=== PATIENT | male | born 1990 | race Caucasian/White ===

== ENCOUNTER 2017-03-06 22:37 | Inpatient (IN) | payer MEDICAID, OTHER, SELFPAY ==
[~2017-03-06] VITALS: Ht 177.8 cm; Wt 110.0 kg
[2017-03-06 23:49] LABS: MEAN CORPUSCULAR HEMOGLOBIN 29.3 pg (27.0-33.0); MEAN CORPUSCULAR HGB CONC 34.3 g/dl (32.0-36.5); MEAN CORPUSCULAR VOLUME 85.4 fl (80.0-96.0); RED CELL DISTRIBUTION WIDTH 12.7 % (11.5-14.5); WHITE BLOOD COUNT 7.7 K/mm3 (4.0-10.0)
[2017-03-07 00:08] LABS: ALBUMIN 4.3 GM/DL (3.2-5.2); ALKALINE PHOSPHATASE 67 U/L (45-117); ALT/SGPT 53 U/L (12-78); ANION GAP 6 MEQ/L (8-16); AST/SGOT 21 U/L (15-37); BILIRUBIN,DIRECT < 0.1 MG/DL (0.0-0.2); BILIRUBIN,TOTAL 0.3 MG/DL (0.2-1.0); BLOOD UREA NITROGEN 13 MG/DL (7-18); CALCIUM LEVEL 9.3 MG/DL (8.5-10.1); CARBON DIOXIDE LEVEL 28 MEQ/L (21-32); CHLORIDE LEVEL 107 MEQ/L (98-107); CREATININE FOR GFR 1.11 MG/DL (0.70-1.30); GLOMERULAR FILTRATION RATE > 60.0 (>60); GLUCOSE, FASTING 87 MG/DL (70-105); POTASSIUM SERUM 4.8 MEQ/L (3.5-5.1); SODIUM LEVEL 141 MEQ/L (136-145); TOTAL PROTEIN 7.6 GM/DL (6.4-8.2)
[2017-03-07 00:10] LABS: METHADONE URINE NEGATIVE (NEGATIVE)
[2017-03-07 01:33] VITALS: BP 140/85
[2017-03-07] MEDS ORDERED: ACETAMINOPHEN TAB 650MG DOSE (2X325MG) PO PRN (02:30)
[2017-03-07] MEDS ORDERED: MOM 30ML SUSPENSION UDC PO PRN (02:30)
[2017-03-07] MEDS ORDERED: OLANZapine ORAL DISINTEGRATING TAB 5MG PO PRN (02:30)
[2017-03-07] MEDS ORDERED: MAALOX 30 ML SUSP *UDC PO PRN (02:30)
[2017-03-07 06:23] VITALS: BP 116/55
--- NOTE | 2017-03-07 09:31 | MHHPEPDOC ---
[facility] History & Physical History and Physical DATE OF ADMISSION: Mar 07, 2017 at 00:57 LEGAL STATUS AT ADMISSION: . CHIEF COMPLAINT: SI, Depression. HISTORY OF THE PRESENT ILLNESS: Patient is a 26-year-old male, single, domiciled with mother, working in [employer]- about 5months, moved recently in this area, [facility] one admission to psychiatry about 1.5yrs ago, depression & SI, on meds for a year but stopped after that, no SA, alcohol(?), PMH- non significant, BIB ambulance called by unknown for SI. ON evaluation, he reported that he has been feeling depressed and suicidal for a long time, failing attempts to get better, multiple stressors, money problems , no relationship problems. He reported that most of his problems started about 10 years ago when his grandfather and he was close to his grandfather. 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 He reports having nightmares of friend's that are frequent for him. He also talked about some of the flashback from his friends that, but was not able to clarify much on that. He reported that he has not been using alcohol for about 3 months, but yesterday he went to a concert & drinking alcohol after concert after 3months, felt depressed, wanted to talk with family but they didnt pick up worker the phone so he went to [employer] [employer]. He reported that he got into argument with his mother over the phone. Later on about financial issues but reports that it is not an uncommon thing and they go back and forth about some financial issues. He reports that he talked about 'you can find my deadcorp in the river' to 1 phone call not sure who he called and thinks that his sister, might have called the ambulance for him. He reports that his depression and suicidal ideas have been with him for more than 7 years, but never turned towards planned or intention to kill himself. He denies any previous attempts to kill himself and reports that that statement that he made about suicide were more impulsive and under influence of alcohol. He reports that his depression consist of sad mood, less energy, less motivation , decrease in appetite and sleep problem along with guilt feeling. He reported feeling overwhelmed at times about the financial problems but denies any panic attacks or anxiety attacks. He denies any OCD symptoms. He also denies any manic symptoms ever in his life. He denies any psychotic symptoms including auditory or visual hallucinations or paranoid ideations. Denies any substance use, apart from alcohol PAST PSYCHIATRIC HISTORY: Prior Psychiatric Disorder:. Patient reported 1 previous hospitalization admission about a year and half ago for depression and suicidal ideations. Outpatient Treatment:. Noncompliant. Suicidal/Self injurious: Denies any attempts but reported suicidal ideations which are chronic. Psychotropic Medication History: Reported he was on trazodone and 1 anti- depressant medication, which she is not able to remember her name of. ALLERGIES: NKDA FAMILY PSYCHIATRIC HISTORY: Denies. 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 Denies any legal problems SUBSTANCE ABUSE HISTORY:, Alcohol use yesterday before 3 months ago. PAST MEDICAL/SURGICAL HISTORY: 1.. Denies any medical issues. Denies any surgical procedures in the past. MENTAL STATUS EXAMINATION: 26yo male sitting in the chair, looks appropriate for the stated age, fair hygiene and grooming, normal psychomotor activities, no abnormal movements, cooperative with fair eye contact, speech is normal in rate, rhythm, amount and prosody, mood is sad & nervous, affect constricted and mood congruent, thought process is logical and goal directed, denies suicidal and homicidal ideations, denies hallucinations, no delusions elicited, aaox3, fair immediate, short term and group home memory, limited insight, judgement and impulse control DIAGNOSES: 1. Major depression, recurrent, moderate to severe in severity, without psychosis. 2.. PTSD. 3.. Alcohol abuse disorder. ASSESSMENT:. Biologically, having no family history of psychiatric illness. No chronic medical illnesses can be protective for the patient but alcohol use can be precipitating and perpetuating factor for the patient. Psychologically, having poor. Defense mechanisms and coping skills can be perpetuating factors. Socially, being practically homeless and getting into arguments with all the relatives, financial problems, can be precipitating and perpetuating factor for the patient PROBLEM LIST: 1. Depression, suicidal ideation. 2., Nightmares and flashback. 3. Alcohol use. INITIAL TREATMENT PLAN: 1. Patient was admitted on a 9.39 2. Complete history was obtained. 3. With patients permission, family will be contacted and database will be expanded. 4. Patients medication regimen will be reviewed and changed accordingly. 5. Patient will be provided with protected environment. 6. Patient will be treated with individual, group, and milieu therapies. 7. Patient will receive supportive psych-education. 8. Discharge planning will commence immediately. 9. Outpatient follow-up treatment will be strongly recommended. 10. The initial treatment plan will focus initially on: * Depression. * Risk for suicide. * Substance abuse. ESTIMATED LENGTH OF STAY: 7-10 DAYS. TIME SPENT COUNSELING AND COORDINATING INITIAL CARE: 45 minutes. Laboratory Data 24H Labs Laboratory Tests 2 03/06/17 22:49: Anion Gap 6L, Glomerular Filtration Rate > 60.0, Calcium Level 9.3, Aspartate Amino Transf (AST/SGOT) 21, Alanine Aminotransferase (ALT/SGPT) 53, Alkaline Phosphatase 67, Total Bilirubin 0.3, Direct Bilirubin < 0.1, Total Protein 7.6, Albumin 4.3, Albumin/Globulin Ratio 1.30, Thyroid Stimulating Hormone (TSH) 0.938, Salicylates Level < 1.7L, Urine Amphetamines Screen NEGATIVE, Urine Benzodiazepines Screen NEGATIVE, Urine Opiates Screen NEGATIVE, Urine Methadone Screen NEGATIVE, Acetaminophen Level < 2.0L, Urine Barbiturates Screen NEGATIVE , Urine Phencyclidine Screen NEGATIVE, Urine Cocaine Metabolite Screen NEGATIVE , Urine Cannabinoids Screen NEGATIVE, Ethyl Alcohol Level 0.078H CBC/BMP Laboratory Tests 03/06/17 22:49 Red Blood Count 5.74, Mean Corpuscular Volume 85.4, Mean Corpuscular Hemoglobin 29.3, Mean Corpuscular Hemoglobin Concent 34.3, Red Cell Distribution Width 12.7 Medications No Active Prescriptions or Reported Meds Allergies Coded Allergies: No Known Allergies (Unverified , 03/06/17) BHASKAR ZAMAN MD Mar 07, 2017 09:31
[2017-03-07] MEDS: ESCITALOPRAM OXALATE 5MG TABLET (LEXAPRO) PO SCH (11:36)
[2017-03-07 18:00] VITALS: BP 140/63
[2017-03-07] MEDS: PRAZOSIN 1 MG CAP PO SCH (22:42)
[2017-03-07] MEDS: traZODone 50 MG TAB PO PRN (23:05)
[2017-03-08 06:53] VITALS: BP 133/58
[2017-03-08] MEDS: ESCITALOPRAM OXALATE 5MG TABLET (LEXAPRO) PO SCH (09:00)
--- NOTE | 2017-03-08 15:37 | MHIPNPDOC ---
[facility], [place] Progress Note Progress Note DATE OF SERVICE: 03/08/17 HISTORY: Patient was seen. He remains irritable and told typewriters functional tester that he does not want to talk and does not feel he is a match. He initially reported that he has been continued to be sad but denied any suicidal or homicidal ideations. He was found walking around in the unit, Few interactions with others. Reported being compliant with the medications and denies any side effects. Patient also seemed to be going to the group therapy and encouraged to continue with that. He refused to talk about his sleep or appetite VITAL SIGNS: See below. CURRENT MEDICATIONS: See below. MENTAL STATUS EXAMINATION: 26yo male sitting in the chair, looks appropriate for the stated age, fair hygiene and grooming, normal psychomotor activities, no abnormal movements, cooperative with fair eye contact, speech is normal in rate, rhythm, amount and prosody, mood is sad & nervous, affect constricted and mood congruent, thought process is logical and goal directed, denies suicidal and homicidal ideations, denies hallucinations, no delusions elicited, aaox3, fair immediate, short term and usp memory, limited insight, judgement and impulse control DIAGNOSES: 1. Major depression, recurrent, moderate to severe in severity, without psychosis. 2.. PTSD. 3.. Alcohol abuse disorder. ASSESSMENT: Biologically, having no family history of psychiatric illness. No chronic medical illnesses can be protective for the patient but alcohol use can be precipitating and perpetuating factor for the patient. Psychologically, having poor. Defense mechanisms and coping skills can be perpetuating factors. Socially, being practically homeless and getting into arguments with all the relatives, financial problems, can be precipitating and perpetuating factor for the patient MANAGEMENT PLAN: continue to current treatment. TIME SPENT:15 minutes. Vital Signs Vital Signs Date Time Temp Pulse Resp B/P (MAP) Pulse Ox O2 Delivery O2 Flow Rate FiO2 03/08/17 06:53 98.0 55 16 133/58 (83) Room Air 03/07/17 01:33 97 Current Medications Current Medications Acetaminophen (Tylenol Tab) 650 mg Q6HP PRN PO HEADACHE or DISCOMFORT; Start at 02:30; Stop 04/06/17 at 02:29 Al Hydrox/Mg Hydrox/Simethicone (Mylanta) 30 ml Q4HP PRN PO HEARTBURN/ INDIGESTION; Start 03/07/17 at 02:30; Stop 04/06/17 at 02:29 Escitalopram Oxalate (Lexapro) 5 mg DAILY PO Last administered on 03/08/17 09: 00; Start 03/07/17 at 09:00; Stop 04/06/17 at 08:59 Home Med (Med Rec Complete!) ASDIRECTED XX ; Start 03/07/17 at 07:30; Stop at 07:42; Status DC Magnesium Hydroxide (Milk Of Magnesia) 30 ml DAILYPRN PRN PO CONSTIPATION; Start 03/07/17 at 02:30; Stop 04/06/17 at 02:29 Olanzapine (ZyPREXA ZYDIS) 5 mg Q4HP PRN PO AGITATION; Start 03/07/17 at 02: 30; Stop 04/06/17 at 02:29 Prazosin HCl (Minipress) 1 mg QHS PO Last administered on 03/07/17 22:42; Start 03/07/17 at 21:00; Stop 04/06/17 at 20:59 Trazodone HCl (Desyrel) 50 mg QHSP PRN PO INSOMNIA Last administered on 23:05; Start 03/07/17 at 02:30; Stop 04/06/17 at 02:29 Allergies Coded Allergies: No Known Allergies (Unverified , 03/06/17) BHASKAR ZAMAN MD Mar 08, 2017 15:37
[2017-03-08 18:00] VITALS: BP 167/80
[2017-03-08] MEDS: PRAZOSIN 1 MG CAP PO SCH (22:06)
[2017-03-08] MEDS: traZODone 50 MG TAB PO PRN (23:00)
[2017-03-09 06:15] VITALS: BP 122/58
[2017-03-09] MEDS: ESCITALOPRAM OXALATE 5MG TABLET (LEXAPRO) PO SCH (09:16)
--- NOTE | 2017-03-09 16:15 | MHIPNPDOC ---
[facility] Progress Note Progress Note DATE OF SERVICE: 03/09/17 HISTORY: day 3 of admission for depression with SI and plan. VITAL SIGNS: See below. NEW TEST RESULTS:na CURRENT MEDICATIONS: See below. MENTAL STATUS EXAMINATION: 26yo male sitting in the chair, looks appropriate for the stated age, fair hygiene and grooming, normal psychomotor activities, no abnormal movements, cooperative with fair eye contact, speech is normal in rate, rhythm, amount and prosody, mood is sad & nervous, affect constricted and mood congruent, thought process is logical and goal directed, denies suicidal and homicidal ideations, denies hallucinations, no delusions elicited, aaox3, fair immediate, short term and fci memory, limited insight, judgement and impulse control DIAGNOSES: 1. Major depression, recurrent, moderate to severe in severity, without psychosis. 2.. PTSD. 3.. Alcohol abuse disorder. ASSESSMENT: pt evaluated by singer songwriter and history obtained. He was formerly a patient at [facility] for depression (not substance abuse) approximately 1.5 years ago. He has not been on antidepressant medication due to lack of healthcare insurance. He is employed, lives with his mother and has an active social life. Pt reports ability to abstain from alcohol for many months having been motivated to quit after his friend received a DUI. They supported each other with alcohol abstinence. He attended a Concert the night of his admission and admits to having about 6 beers and was later suicidal. He states he has vague SI off and on and knows he is better, less depressed, when he is taking medication. Pt is familiar with the National suicide prevention hotline and has used this in the past. He agrees to continue reaching out whenever he has suicidal thoughts rather than do anything harmful to himself or others. He is requesting discharge so he can return to work. He states he feels much better and is no longer contemplating suicide. Discussed medications, risks and benefits including sexual side effects. Mentioned that if necessary to change meds, Wellbutrin or Viibryd may be suitable alternatives. Pt tolerating lexapro without issues. MANAGEMENT PLAN: We will arrange follow up care for medication mgt after discharge. Pt is very particular about his therapist and does not desire a referral for therapy from us. He agrees to request therapy later if he feels he needs additional support. We discussed 12 step programs, reading recovery material and changing people, places and things as a means to help him stay alcohol free. Discussed the effects of alcohol on his inhibitions, his sleep and his general health. Encouraged him to stay away from it because of his underlying depression and tendency to become suicidal. Continue close observation, continue medication, prepare for discharge on . Medical Data: LABORATORY DATA: CBC was normal. Electrolytes normal. BUN and creatinine normal at 13 and 1.11. EtOH was 0.078. REVIEW OF SYSTEMS: Ten systems review was done and was unremarkable. PHYSICAL EXAMINATION: Height 70 inches, weight 110 kg, body mass index (BMI) 34.8. Blood pressure 133/58, pulse 55, respirations 16, temperature 98. Patient is alert and oriented times three. Pupils equal and reactive to light. Extraocular movements are intact. Cornea and sclerae clear. Conjunctivae is normal. No facial asymmetry. Pharynx, tongue, gums pink and moist. Tongue is midline. NECK: Supple without lymphadenopathy. No thyromegaly. No goiter. Carotids 2+ without bruit. CHEST: Clear to auscultation without wheeze or retraction. HEART: Regular. ABDOMEN: Benign. Bowel sounds positive. GENITOURINARY/RECTAL: Not done. EXTREMITIES: Show equal strength. Full range of motion. No cyanosis, clubbing , or edema. Peripheral pulses equal and palpable bilaterally. SKIN: Warm and dry. IMPRESSION/PLAN: Psychiatric plan per psychiatry. No acute medical issues. TIME SPENT: 25 minutes. Vital Signs Vital Signs Date Time Temp Pulse Resp B/P (MAP) Pulse Ox O2 Delivery O2 Flow Rate FiO2 03/09/17 06:15 98.8 62 16 122/58 (79) Room Air 03/07/17 01:33 97 Current Medications Current Medications Acetaminophen (Tylenol Tab) 650 mg Q6HP PRN PO HEADACHE or DISCOMFORT; Start at 02:30; Stop 04/06/17 at 02:29 Al Hydrox/Mg Hydrox/Simethicone (Mylanta) 30 ml Q4HP PRN PO HEARTBURN/ INDIGESTION; Start 03/07/17 at 02:30; Stop 04/06/17 at 02:29 Escitalopram Oxalate (Lexapro) 5 mg DAILY PO Last administered on 03/09/17t 09: 16; Start 03/07/17 at 09:00; Stop 04/06/17 at 08:59 Home Med (Med Rec Complete!) ASDIRECTED XX ; Start 03/07/17 at 07:30; Stop at 07:42; Status DC Magnesium Hydroxide (Milk Of Magnesia) 30 ml DAILYPRN PRN PO CONSTIPATION; Start 03/07/17 at 02:30; Stop 04/06/17 at 02:29 Olanzapine (ZyPREXA ZYDIS) 5 mg Q4HP PRN PO AGITATION; Start 03/07/17 at 02: 30; Stop 04/06/17 at 02:29 Prazosin HCl (Minipress) 1 mg QHS PO Last administered on 03/08/17 22:06; Start 03/07/17 at 21:00; Stop 04/06/17 at 20:59 Trazodone HCl (Desyrel) 50 mg QHSP PRN PO INSOMNIA Last administered on 23:00; Start 03/07/17 at 02:30; Stop 04/06/17 at 02:29 Allergies Coded Allergies: No Known Allergies (Unverified , 03/06/17) Saumya Moses Mar 09, 2017 16:15
--- NOTE | 2017-03-09 16:16 | MHIPNPDOC ---
[facility] Progress Note Vital Signs Vital Signs Date Time Temp Pulse Resp B/P (MAP) Pulse Ox O2 Delivery O2 Flow Rate FiO2 03/09/17 06:15 98.8 62 16 122/58 (79) Room Air 03/07/17 01:33 97 Current Medications Current Medications Acetaminophen (Tylenol Tab) 650 mg Q6HP PRN PO HEADACHE or DISCOMFORT; Start at 02:30; Stop 04/06/17 at 02:29 Al Hydrox/Mg Hydrox/Simethicone (Mylanta) 30 ml Q4HP PRN PO HEARTBURN/ INDIGESTION; Start 03/07/17 at 02:30; Stop 04/06/17 at 02:29 Escitalopram Oxalate (Lexapro) 5 mg DAILY PO Last administered on 03/09/17 09: 16; Start 03/07/17 at 09:00; Stop 04/06/17 at 08:59 Home Med (Med Rec Complete!) ASDIRECTED XX ; Start 03/07/17 at 07:30; Stop at 07:42; Status DC Magnesium Hydroxide (Milk Of Magnesia) 30 ml DAILYPRN PRN PO CONSTIPATION; Start 03/07/17 at 02:30; Stop 04/06/17 at 02:29 Olanzapine (ZyPREXA ZYDIS) 5 mg Q4HP PRN PO AGITATION; Start 03/07/17 at 02: 30; Stop 04/06/17 at 02:29 Prazosin HCl (Minipress) 1 mg QHS PO Last administered on 03/08/17 22:06; Start 03/07/17 at 21:00; Stop 04/06/17 at 20:59 Trazodone HCl (Desyrel) 50 mg QHSP PRN PO INSOMNIA Last administered on 23:00; Start 03/07/17 at 02:30; Stop 04/06/17 at 02:29 Allergies Coded Allergies: No Known Allergies (Unverified , 03/06/17) Saumya Moses Mar 09, 2017 16:16
[2017-03-09 18:00] VITALS: BP 128/82
[2017-03-09 22:20] VITALS: BP 159/82
[2017-03-09] MEDS: PRAZOSIN 1 MG CAP PO SCH (22:20)
[2017-03-09] MEDS: traZODone 50 MG TAB PO PRN (23:01)
[2017-03-10 06:45] VITALS: BP_SYST 128; BP_SYST 186; BP_DIAS 59; BP_DIAS 88
--- NOTE | 2017-03-10 06:53 | HPE ---
DATE OF ADMISSION: 03/07/2017 Please refer to the psychiatric history and evaluation for further details on this admission. This examination and history is intended for medical issues which may need treatment, followup, or consult on this 26-year-old male. PRIMARY CARE PROVIDER: None. ALLERGIES: No known allergies. SOCIAL HISTORY: He is single. Ethyl alcohol (EtOH): None for 3 months, then he went to a concert and drank just prior to coming in. Smokes: None. Recreational drug use: None. PAST MEDICAL HISTORY: Depression. PAST SURGICAL HISTORY: Right knee surgery 2013, tonsillectomy and adenoidectomy as a child. HOME MEDICATIONS: None. LABORATORY DATA: CBC was normal. Electrolytes normal. BUN and creatinine normal at 13 and 1.11. EtOH was 0.078. REVIEW OF SYSTEMS: Ten systems review was done and was unremarkable. PHYSICAL EXAMINATION: Height 70 inches, weight 110 kg, body mass index (BMI) 34.8. Blood pressure 133/58, pulse 55, respirations 16, temperature 98. Patient is alert and oriented times three. Pupils equal and reactive to light. Extraocular movements are intact. Cornea and sclerae clear. Conjunctivae is normal. No facial asymmetry. Pharynx, tongue, gums pink and moist. Tongue is midline. NECK: Supple without lymphadenopathy. No thyromegaly. No goiter. Carotids 2+ without bruit. CHEST: Clear to auscultation without wheeze or retraction. HEART: Regular. ABDOMEN: Benign. Bowel sounds positive. GENITOURINARY/RECTAL: Not done. EXTREMITIES: Show equal strength. Full range of motion. No cyanosis, clubbing, or edema. Peripheral pulses equal and palpable bilaterally. SKIN: Warm and dry. IMPRESSION/PLAN: Psychiatric plan per psychiatry. No acute medical issues.
[2017-03-10] MEDS: ESCITALOPRAM OXALATE 5MG TABLET (LEXAPRO) PO SCH (08:11)
[2017-03-10] MEDS ORDERED: Escitalopram Oxalate PO (09:15)
[2017-03-10] MEDS ORDERED: TRAZO50TA PO ×2 (09:15→12:13)
[2017-03-10] MEDS ORDERED: MINI1CAP PO ×2 (09:15→12:13)
--- NOTE | 2017-03-10 13:28 | MHDSPDOC ---
[facility] Discharge Summary Discharge Summary DATE OF ADMISSION: Mar 07, 2017 at 00:57 DATE OF DISCHARGE: Mar 10, 2017 at 10:30 DISCHARGE DIAGNOSES: 1. Major depression, recurrent, moderate to severe in severity, without psychosis. 2.. PTSD. 3.. Alcohol abuse disorder. REASON FOR ADMISSION: reports dysthymia over past 7 years, when intoxicated had suicide plan of drowning in the river. CONSULTANTS INVOLVED: na TREATMENT AND PROGRESS ON THE UNIT : Pt was started on Lexapro for anxiety and depression. received full education on the medication including need to dose consistently and not to stop the medication abruptly, it will require a taper. Pt reports prior tx for depression only at [facility] about 1.5 years ago. He has been doing "okay" but without health insurance he stopped taking his antidepressant. His depressive symptoms have continued but did not become problematic until he had 5 or 6 beers at a concert on Wednesday. He could not find anyone to talk to and texted his sister that he was going to jump [place] the [place]. The sister notified police who found him by the river. He admitted to the plan. He came to the unit for treatment. HOSPITAL COURSE:he was generally cooperative and pleasant. he is very picky about therapist and took a dislike to Dr. Park for no good reason. He says it is like that for him sometimes if he doesn't "click" with a person. He tolerated medication without side effects. He verbalized improvement on meds versus no meds in terms of mood. He quickly resolved his thoughts of self-harm. He denies having a problem with alcohol. He voluntarily stays away from it most of the time. DISCHARGE ASSESSMENT: Pt discharged on Lexapro at 10 mg daily. Will likely need to increase to 20 mg after 4-6 weeks if no firm mood improvement. He denies suicidal thoughts prior to leaving and for 48 hours before 03/10/17. 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 He will return to his mother's house. Overall pt feels at this point in his life he should be further ahead in life than what he is. Cautioned pt about being hard on himself. Discussed benefits of positive thinking and healthy ways to reward himself. Pt was advised to avoid all forms of alcohol. Pts nightmares stopped on prazosin. he will be prescribed this on discharge. No other symptoms of ptsd observed during admission. MENTAL STATUS EXAMINATION ON DISCHARGE: MEDICATIONS ON DISCHARGE: - Lexapro for anxiety/depression - trazodone for insomnia. - Prazosin for nightmares. PLAN/FOLLOWUP ARRANGEMENTS: [facility] for med mgt. declined referral for alcohol use disorder. Is not a daily drinking, cautioned about the impact of alcohol on his mood and thoughts and the need to avoid using this substance. The amount of time spent in the coordination of care for this patient was approximately 30 minutes. Vital Signs/I&Os Vital Signs Date Time Temp Pulse Resp B/P (MAP) Pulse Ox O2 Delivery O2 Flow Rate FiO2 03/10/17 06:45 98.1 56 18 128/59 (82) Room Air 03/07/17 01:33 97 Medications Scheduled Prazosin HCl (Minipress) 1 Mg Cap, 1 MG PO QHS for nightmares for 7 Days, #7 [Escitalopram Oxalate] 10 TAB, 10 MG PO DAILY for MOOD for 7 Days, #7 do not stop medication abruptly. may require increase after 4-6 weeks. discuss with [facility] provider. Scheduled PRN Trazodone HCl (Trazodone HCl) 50 Mg Tab, 50 MG PO QHSP PRN for INSOMNIA for 7 Days, #7 give yourself 8-9 hours of sleep when taking this medication. Allergies Coded Allergies: No Known Allergies (Unverified , 03/06/17) Saumya Moses Mar 10, 2017 13:28
== END 2017-03-10 10:30 | disposition home or self-care (01) | DRG 751 ==
LOC: M ED 22:37 → M ED INP 03-07 00:57 → M PSY 03-07 01:15
PROVIDERS: ADMIT Psychiatry & Neurology Psychiatry; ATTEND Psychiatry & Neurology Psychiatry
DX: F33.2 Major depressive disorder, recurrent severe without psychotic features (principal); F10.10 Alcohol abuse, uncomplicated; F43.10 Post-traumatic stress disorder, unspecified; Z79.899 Other long term (current) drug therapy; G47.00 Insomnia, unspecified; F17.200 Nicotine dependence, unspecified, uncomplicated

== ENCOUNTER 2017-04-22 21:14 | Emergency (ER) | payer OTHER, MEDICAID ==
[~2017-04-22] VITALS: Ht 177.8 cm; Wt 111.0 kg
[~2017-04-22 21:14] MED LIST: Escitalopram Oxalate PO; MINI1CAP PO; TRAZO50TA PO
[2017-04-22] MEDS ORDERED: ACETAMINOPHEN 325 MG TAB PO ONE (22:30)
[2017-04-22 23:34] VITALS: BP 118/52
--- NOTE | 2017-04-23 01:03 | REP ---
Clinical: Trauma. Technique: AP, lateral, bilateral oblique views of the left ankle. Findings: Mild soft tissue swelling is suggested. No obvious acute fracture or dislocation. Joint spaces and ankle mortise appear intact. Lateral view suggests accessory os trigonum and os supratalare. No subcutaneous emphysema or radiodense foreign body. Impression: Mild swelling. No acute fracture dislocation. Signed by Eugenio Austin MD 04/23/2017 12:55 A
== END 2017-04-22 23:34 | disposition home or self-care (01) ==
LOC: M ED 21:14
DX: S93.402A Sprain of unspecified ligament of left ankle, initial encounter (principal); X50.1XXA Overexertion from prolonged static or awkward postures, initial encounter; Y92.9 Unspecified place or not applicable; Y93.9 Activity, unspecified; Y99.0 Civilian activity done for income or pay; Z79.899 Other long term (current) drug therapy

== ENCOUNTER 2017-08-12 22:13 | Emergency (ER) | payer OTHER, MEDICAID ==
[2017-08-13] MEDS: KETOROLAC 60 MG/2 ML VIAL (J1885) IM ×2 (06:24)
== END 2017-08-13 06:55 | disposition home or self-care (01) ==
LOC: M ED 22:13
DX: S43.52XA Sprain of left acromioclavicular joint, initial encounter (principal); X50.0XXA Overexertion from strenuous movement or load, initial encounter; Y92.9 Unspecified place or not applicable; Y93.89 Activity, other specified; Y99.0 Civilian activity done for income or pay; F41.9 Anxiety disorder, unspecified; F32.9 Major depressive disorder, single episode, unspecified
CPT/HCPCS: J1885

== ENCOUNTER → 2017-08-23 | Outpatient (REF) | payer OTHER, MEDICAID ==
[2017-08-23 17:17] LABS: BASO % 0.4 % (0.0-1.0); EOS # 0.4 10^3/uL (0.0-0.50); EOS % 5.4 % (0.0-3.0); HEMATOCRIT 48.8 % (42.0-52.0); HEMOGLOBIN 16.8 g/dl (14.0-18.0); IMMATURE GRANULOCYTE % 0.1 % (0-3.0); LYMPH # 2.1 10^3/uL (1.5-6.5); LYMPH % 30.3 % (24.0-44.0); MEAN CORPUSCULAR HEMOGLOBIN 29.1 pg (27.0-33.0); MEAN CORPUSCULAR HGB CONC 34.4 g/dl (32.0-36.5); MEAN CORPUSCULAR VOLUME 84.4 fl (80.0-96.0); MONO # 0.6 10^3/uL (0.0-0.8); MONO % 8.4 % (0.0-5.0); NEUTROPHILS # 3.8 10^3/uL (1.8-7.7); NEUTROPHILS % 55.4 % (36.0-66.0); PLATELET COUNT, AUTOMATED 358 10^3/uL (150-450); RED BLOOD COUNT 5.78 10^6/uL (4.30-6.10); RED CELL DISTRIBUTION WIDTH 12.5 % (11.5-14.5); WHITE BLOOD COUNT 6.8 10^3/uL (4.0-10.0)
[2017-08-23 17:59] LABS: TOTAL 25(OH) VITAMIN D 13.7 NG/ML (30.0-100.0)
[2017-08-23 18:04] LABS: ALBUMIN/GLOBULIN RATIO 1.29 (1.00-1.93); ALKALINE PHOSPHATASE 62 U/L (45-117); ALT/SGPT 57 U/L (12-78); ANION GAP 8 MEQ/L (8-16); AST/SGOT 20 U/L (7-37); BILIRUBIN,TOTAL 0.6 MG/DL (0.2-1.0); BLOOD UREA NITROGEN 19 MG/DL (7-18); CALCIUM LEVEL 9.2 MG/DL (8.5-10.1); CARBON DIOXIDE LEVEL 26 MEQ/L (21-32); CHLORIDE LEVEL 106 MEQ/L (98-107); CREATININE FOR GFR 1.03 MG/DL (0.70-1.30); GLOMERULAR FILTRATION RATE > 60.0 (>60); GLUCOSE, FASTING 91 MG/DL (70-100); POTASSIUM SERUM 4.4 MEQ/L (3.5-5.1); SODIUM LEVEL 140 MEQ/L (136-145); THYROID STIMULATING HORMONE 0.821 uIU/ML (0.358-3.740); TOTAL PROTEIN 7.1 GM/DL (6.4-8.2)
[2017-08-23 21:37] LABS: CHLAMYDIA DNA AMPLIFICATION NEGATIVE (NEGATIVE); GC DNA AMPLIFICATION NEGATIVE (NEGATIVE)
[2017-08-25 11:01] LABS: HIV 1&2 SCREEN CENTAUR NEGATIVE (NEGATIVE)
== END ==
LOC: M LAB REF 16:38
DX: Z00.00 Encounter for general adult medical examination without abnormal findings (principal)

== ENCOUNTER 2017-10-17 18:32 | Emergency (ER) | payer OTHER, MEDICAID | END 2017-10-17 21:12 | disposition home or self-care (01) | LOC: M ED 18:32 | DX: S80.12XA Contusion of left lower leg, initial encounter (principal); W21.09XA Struck by other hit or thrown ball, initial encounter; Y92.9 Unspecified place or not applicable; Y93.9 Activity, unspecified; Y99.9 Unspecified external cause status | CPT/HCPCS: 73590 ==

== ENCOUNTER 2017-12-23 20:09 | Emergency (ER) | payer OTHER ==
[2017-12-23] MEDS: IBUPROFEN 800 MG TAB PO (22:03)
[2017-12-23] MEDS: NORCO 5/325MG TABLET (BULK FOR ED) PO (22:03)
[2017-12-23] MEDS: METHOCARBAMOL 500 MG TAB PO (22:03)
== END 2017-12-23 22:06 | disposition home or self-care (01) ==
LOC: M ED 20:09
DX: M54.41 Lumbago with sciatica, right side (principal)
CPT/HCPCS: 99283

== ENCOUNTER → 2017-12-23 | Outpatient (CLI) | payer OTHER | LOC: M RAD 12:22 | DX: M79.661 Pain in right lower leg (principal) | CPT/HCPCS: 72114 ==

== ENCOUNTER → 2017-12-23 | Outpatient (REF) | payer OTHER ==
[2017-12-23 17:22] LABS: ESTIMATED AVERAGE GLUCOSE 111 MG/DL (60-110); HEMOGLOBIN A1c 5.5 %
== END ==
LOC: M LAB REF 16:41
DX: Z68.41 Body mass index [BMI] 40.0-44.9, adult (principal)

== ENCOUNTER → 2018-02-02 | Outpatient (CLI) | payer OTHER ==
[2018-02-02 20:24] LABS: BASO % 0.3 % (0.0-1.0); EOS # 0.2 10^3/uL (0.0-0.50); EOS % 2.2 % (0.0-3.0); HEMATOCRIT 43.5 % (42.0-52.0); HEMOGLOBIN 15.1 g/dl (13.5-17.5); IMMATURE GRANULOCYTE % 0.3 % (0-3.0); LYMPH # 1.2 10^3/uL (1.5-6.5); LYMPH % 12.7 % (24.0-44.0); MEAN CORPUSCULAR HEMOGLOBIN 29.1 pg (27.0-33.0); MEAN CORPUSCULAR HGB CONC 34.7 g/dl (32.0-36.5); MEAN CORPUSCULAR VOLUME 83.8 fl (80.0-96.0); MONO # 0.8 10^3/uL (0.0-0.8); NEUTROPHILS % 75.5 % (36.0-66.0); RED BLOOD COUNT 5.19 10^6/uL (4.30-6.10); RED CELL DISTRIBUTION WIDTH 12.4 % (11.5-14.5); WHITE BLOOD COUNT 9.3 10^3/uL (4.0-10.0)
[2018-02-02 20:42] LABS: ALBUMIN 3.8 GM/DL (3.2-5.2); ALBUMIN/GLOBULIN RATIO 1.19 (1.00-1.93); ALKALINE PHOSPHATASE 66 U/L (45-117); ALT/SGPT 58 U/L (12-78); ANION GAP 8 MEQ/L (8-16); AST/SGOT 23 U/L (7-37); BLOOD UREA NITROGEN 17 MG/DL (7-18); CALCIUM LEVEL 8.7 MG/DL (8.5-10.1); CARBON DIOXIDE LEVEL 27 MEQ/L (21-32); CHLORIDE LEVEL 104 MEQ/L (98-107); CREATININE FOR GFR 1.21 MG/DL (0.70-1.30); FREE T4 0.99 NG/DL (0.76-1.46); GLOMERULAR FILTRATION RATE > 60.0 (>60); GLUCOSE, FASTING 97 MG/DL (70-100); SODIUM LEVEL 139 MEQ/L (136-145); THYROID STIMULATING HORMONE 0.359 uIU/ML (0.358-3.740)
[2018-02-02 21:01] LABS: POS COUNT POS FLAG
[2018-02-02 21:02] LABS: PLATELET COUNT, AUTOMATED 209 10^3/uL (150-450)
[2018-02-05 00:07] LABS: EBV VIRAL CAPSID AG IgM <36.0 U/mL (0.0-35.9)
[2018-02-05 00:07] LABS: EBV VIRAL CAPSID AG IgG >600.0 U/mL (0.0-17.9)
== END ==
LOC: M LAB 19:04
DX: M79.1 Myalgia (principal); R53.83 Other fatigue
CPT/HCPCS: 84443

== ENCOUNTER 2018-02-03 14:48 | Emergency (ER) | payer OTHER ==
[2018-02-03] MEDS: ONDANSETRON 4MG/2ML VIAL (J2405) IV (17:45)
[2018-02-03 17:46] LABS: AMORPHOUS SEDIMENT RFX SMALL (NEGATIVE); KETONE, URINE AUTO RFX NEGATIVE (NEGATIVE); LEUKOCYTE ESTERASE UR AUTO RFX NEGATIVE (NEGATIVE); MUCUS, URINE RFX SMALL (NEGATIVE); NITRITE, URINE AUTO RFX NEGATIVE (NEGATIVE); RBC, URINE AUTO RFX 4 /HPF (0-3); SPECIFIC GRAVITY UR AUTO RFX 1.024 (1.002-1.035); SQUAM EPITHELIAL CELL UR AURFX 1 /HPF (0-6); WBC, URINE AUTO RFX 1 /HPF (0-3)
[2018-02-03] MEDS: NS 1,000 ML IV (17:46)
[2018-02-03] MEDS: KETOROLAC 30 MG/ML VIAL (J1885) IV (17:46)
[2018-02-03 18:15] LABS: BASO % 0.2 % (0.0-1.0); EOS % 0.1 % (0.0-3.0); HEMATOCRIT 45.1 % (42.0-52.0); HEMOGLOBIN 15.8 g/dl (13.5-17.5); IMMATURE GRANULOCYTE % 0.4 % (0-3.0); LYMPH # 0.9 10^3/uL (1.5-6.5); MEAN CORPUSCULAR HEMOGLOBIN 29.2 pg (27.0-33.0); MEAN CORPUSCULAR VOLUME 83.2 fl (80.0-96.0); MONO # 0.7 10^3/uL (0.0-0.8); MONO % 6.2 % (0.0-5.0); NEUTROPHILS # 9.7 10^3/uL (1.8-7.7); NEUTROPHILS % 85.1 % (36.0-66.0); PLATELET COUNT, AUTOMATED 295 10^3/uL (150-450); RED BLOOD COUNT 5.42 10^6/uL (4.30-6.10); RED CELL DISTRIBUTION WIDTH 12.3 % (11.5-14.5); WHITE BLOOD COUNT 11.4 10^3/uL (4.0-10.0)
[2018-02-03 18:34] LABS: CONTROL LINE MONO INT CTR LINE PRESENT; MONO SCRN NEGATIVE (NEGATIVE)
[2018-02-03 18:50] LABS: ALBUMIN 3.8 GM/DL (3.2-5.2); ALKALINE PHOSPHATASE 74 U/L (45-117); ALT/SGPT 66 U/L (12-78); ANION GAP 9 MEQ/L (8-16); AST/SGOT 24 U/L (7-37); BILIRUBIN,DIRECT 0.2 MG/DL (0.0-0.2); BILIRUBIN,TOTAL 0.6 MG/DL (0.2-1.0); BLOOD UREA NITROGEN 16 MG/DL (7-18); CALCIUM LEVEL 9.1 MG/DL (8.5-10.1); CARBON DIOXIDE LEVEL 25 MEQ/L (21-32); CHLORIDE LEVEL 105 MEQ/L (98-107); CREATININE FOR GFR 1.08 MG/DL (0.70-1.30); GLOMERULAR FILTRATION RATE > 60.0 (>60); GLUCOSE, FASTING 104 MG/DL (70-100); LIPASE 158 U/L (73-393); POTASSIUM SERUM 4.5 MEQ/L (3.5-5.1); SODIUM LEVEL 139 MEQ/L (136-145); TOTAL PROTEIN 7.6 GM/DL (6.4-8.2)
== END 2018-02-03 19:07 | disposition home or self-care (01) ==
LOC: M ED 14:48
DX: R10.9 Unspecified abdominal pain (principal); G47.00 Insomnia, unspecified; F32.9 Major depressive disorder, single episode, unspecified; F17.228 Nicotine dependence, chewing tobacco, with other nicotine-induced disorders
CPT/HCPCS: J2405

== ENCOUNTER 2018-04-30 22:36 | Emergency (ER) | payer OTHER ==
[2018-04-30] MEDS: METOPROLOL TART 25 MG TABLET PO (23:45)
[2018-05-01 00:12] LABS: ANION GAP 6 MEQ/L (8-16); BLOOD UREA NITROGEN 17 MG/DL (7-18); C REACTIVE PROTEIN QUANTITATIV < 0.30 MG/DL (0.00-0.30); CALCIUM LEVEL 9.1 MG/DL (8.5-10.1); CARBON DIOXIDE LEVEL 27 MEQ/L (21-32); CHLORIDE LEVEL 105 MEQ/L (98-107); CREATININE FOR GFR 1.24 MG/DL (0.70-1.30); FREE THYROXINE INDEX 3.6 % (1.4-3.8); GLOMERULAR FILTRATION RATE > 60.0 (>60); GLUCOSE, FASTING 102 MG/DL (70-100); POTASSIUM SERUM 4.7 MEQ/L (3.5-5.1); SODIUM LEVEL 138 MEQ/L (136-145); T UPTAKE 36 % (33-40); THYROXINE (T4) 10.1 UG/DL (4.5-12.0)
[2018-05-04 08:07] LABS: COPPER PLASMA 93 ug/dL (72-166); Lyme Disease IgG/IgM Antibodie <0.91 ISR (0.00-0.90); Lyme Disease IgM Ab Quantitati <0.80 index (0.00-0.79)
== END 2018-05-01 04:37 | disposition home or self-care (01) ==
LOC: M ED 05-01 04:37
DX: M54.16 Radiculopathy, lumbar region (principal); J45.909 Unspecified asthma, uncomplicated; F17.200 Nicotine dependence, unspecified, uncomplicated; Z82.49 Family history of ischemic heart disease and other diseases of the circulatory system
CPT/HCPCS: 72148

== ENCOUNTER → 2018-06-04 | Outpatient (REF) | payer OTHER | LOC: M LAB REF 13:00 | DX: J02.9 Acute pharyngitis, unspecified (principal) | CPT/HCPCS: 87081 ==

== ENCOUNTER 2018-08-14 12:58 | Emergency (ER) | payer OTHER ==
[~2018-08-14] VITALS: Ht 177.8 cm; Wt 13.2 kg
[~2018-08-14 12:58] MED LIST changes: +IBUP200C25 PO; +IBUP80TA PO; +KETO10TAB PO; +NEOM1SOL13; +NORCOTAB PO; +PRED20TA; +PRED20TA PO; +ROBA500T PO; +VENTAER; +ZOFR4TAB14 PO
[2018-08-14] MEDS ORDERED: MELO7.5T7 PO (13:16)
[2018-08-14] MEDS ORDERED: TIZA4CAP PO (13:16)
[2018-08-14] MEDS ORDERED: TRAZ-189 PO (13:16)
[2018-08-14] MEDS ORDERED: GABA-843 PO (13:16)
[2018-08-14 14:52] LABS: HEMATOCRIT 46.4 % (42.0-52.0); HEMOGLOBIN 15.9 g/dl (13.5-17.5); MEAN CORPUSCULAR HEMOGLOBIN 28.6 pg (27.0-33.0); MEAN CORPUSCULAR HGB CONC 34.3 g/dl (32.0-36.5); MEAN CORPUSCULAR VOLUME 83.6 fl (80.0-96.0); PLATELET COUNT, AUTOMATED 349 10^3/uL (150-450); RED BLOOD COUNT 5.55 10^6/uL (4.30-6.10); WHITE BLOOD COUNT 6.3 10^3/uL (4.0-10.0)
[2018-08-14 15:07] LABS: AMPHETAMINES LEVEL URINE NEGATIVE (NEGATIVE); BARBITURATES URINE NEGATIVE (NEGATIVE); BENZODIAZEPINES URINE NEGATIVE (NEGATIVE); CANNABINOIDS URINE NEGATIVE (NEGATIVE); COCAINE METABOLITE URINE NEGATIVE (NEGATIVE); METHADONE URINE NEGATIVE (NEGATIVE); OPIATES URINE NEGATIVE (NEGATIVE); PHENCYCLIDINE URINE NEGATIVE (NEGATIVE)
[2018-08-14 15:20] LABS: ALBUMIN 4.2 GM/DL (3.2-5.2); ALT/SGPT 73 U/L (12-78); BILIRUBIN,DIRECT 0.2 MG/DL (0.0-0.2); BILIRUBIN,TOTAL 0.8 MG/DL (0.2-1.0); BLOOD UREA NITROGEN 19 MG/DL (7-18); CARBON DIOXIDE LEVEL 24 MEQ/L (21-32); CHLORIDE LEVEL 107 MEQ/L (98-107); CREATININE FOR GFR 1.16 MG/DL (0.70-1.30); GLOMERULAR FILTRATION RATE > 60.0 (>60); GLUCOSE, FASTING 92 MG/DL (70-100); POTASSIUM SERUM 4.2 MEQ/L (3.5-5.1); SALICYLATE LEVEL < 1.7 MG/DL (5.0-30.0); SODIUM LEVEL 139 MEQ/L (136-145); THYROID STIMULATING HORMONE 0.861 uIU/ML (0.358-3.740); TOTAL PROTEIN 7.3 GM/DL (6.4-8.2)
[2018-08-14 15:21] LABS: ACETAMINOPHEN LEVEL < 2.0 UG/ML (10.0-30.0); ETHYL ALCOHOL (ETHANOL) < 0.003 % (0.000-0.010)
[2018-08-14 18:22] VITALS: BP 139/81
--- NOTE | 2018-08-14 19:56 | ECGEPIP ---
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
== END 2018-08-14 18:24 | disposition short-term general hospital (02) ==
LOC: M ED 12:58
DX: F33.9 Major depressive disorder, recurrent, unspecified (principal); R45.851 Suicidal ideations; F17.220 Nicotine dependence, chewing tobacco, uncomplicated; Z79.899 Other long term (current) drug therapy
CPT/HCPCS: 36415; 80048; 80076; 80307; 84443; 85027; 93005; 99285; G0480

== ENCOUNTER 2018-10-21 16:54 | Inpatient (IN) | payer MEDICAID, OTHER ==
[~2018-10-21] VITALS: Ht 177.8 cm; Wt 140.9 kg
[~2018-10-21 16:54] MED LIST changes: +GABA-843 PO; +HYDR-3715 PO; +MELO7.5T7 PO; -NORCOTAB PO; +TIZA4CAP PO; +TRAZ-189 PO
--- NOTE | 2018-10-21 17:40 | REP ---
PA and lateral chest: There are no comparisons. The lung adams are clear. The cardiac size is normal. The roscoe, mediastinum, and skeletal structures are unremarkable. Impression: Negative PA and lateral chest. Electronically Signed by Jamison Srivastava MD 10/21/2018 05:31 P
[2018-10-21 17:58] LABS: HEMATOCRIT 45.7 % (42.0-52.0); HEMOGLOBIN 15.9 g/dl (13.5-17.5); MEAN CORPUSCULAR HEMOGLOBIN 28.8 pg (27.0-33.0); MEAN CORPUSCULAR HGB CONC 34.8 g/dl (32.0-36.5); MEAN CORPUSCULAR VOLUME 82.6 fl (80.0-96.0); PLATELET COUNT, AUTOMATED 344 10^3/uL (150-450); RED BLOOD COUNT 5.53 10^6/uL (4.30-6.10); WHITE BLOOD COUNT 7.9 10^3/uL (4.0-10.0)
[2018-10-21 18:37] LABS: ALBUMIN 4.2 GM/DL (3.2-5.2); ALT/SGPT 88 U/L (12-78); BILIRUBIN,DIRECT 0.2 MG/DL (0.0-0.2); BILIRUBIN,TOTAL 0.6 MG/DL (0.2-1.0); BLOOD UREA NITROGEN 17 MG/DL (7-18); CALCIUM LEVEL 9.3 MG/DL (8.5-10.1); CARBON DIOXIDE LEVEL 23 MEQ/L (21-32); CHLORIDE LEVEL 107 MEQ/L (98-107); CREATININE FOR GFR 1.37 MG/DL (0.70-1.30); ETHYL ALCOHOL (ETHANOL) < 0.003 % (0.000-0.010); GLOMERULAR FILTRATION RATE > 60.0 (>60); GLUCOSE, FASTING 109 MG/DL (70-100); SALICYLATE LEVEL < 1.7 MG/DL (5.0-30.0); SODIUM LEVEL 142 MEQ/L (136-145); THYROID STIMULATING HORMONE 0.737 uIU/ML (0.358-3.740); TOTAL PROTEIN 7.2 GM/DL (6.4-8.2)
[2018-10-21 18:38] LABS: ACETAMINOPHEN LEVEL < 2.0 UG/ML (10.0-30.0)
--- NOTE | 2018-10-21 19:40 | ECGEPIP ---
Stationary ECG Study [facility] - ED Test Date: 2018-10-21 Pat Name: SHAHEED NATARAJAN Department: Room: - Gender: M Technical Support Coordinator: TC : 1990 Requested By: FARIDA Multani Order Number: [id number] Reading MD: Tyrel Jarrett Measurements Intervals [place] Rate: 103 P: 50 CT: 152 QRS: -11 QRSD: 106 T: 53 QT: 326 QTc: 427 Interpretive Statements SINUS TACHYCARDIA ABNORMAL RHYTHM ECG LEFTWARD AXIS CW 08/14/18 RATE INCREASED Electronically Signed On 10-21-2018 19:40:19 EDT by Tyrel Jarrett
[2018-10-21 19:45] LABS: AMPHETAMINES LEVEL URINE NEGATIVE (NEGATIVE); BARBITURATES URINE NEGATIVE (NEGATIVE); BENZODIAZEPINES URINE NEGATIVE (NEGATIVE); CANNABINOIDS URINE NEGATIVE (NEGATIVE); COCAINE METABOLITE URINE NEGATIVE (NEGATIVE); METHADONE URINE NEGATIVE (NEGATIVE); OPIATES URINE NEGATIVE (NEGATIVE); PHENCYCLIDINE URINE NEGATIVE (NEGATIVE)
[2018-10-21] MEDS ORDERED: MOM 30ML SUSPENSION UDC PO PRN (21:15)
[2018-10-21] MEDS ORDERED: MAALOX 30 ML SUSP *UDC PO PRN (21:15)
[2018-10-21] MEDS ORDERED: NICOTINE 21MG/24HR 1 EA TRANSDERMAL TD PRN (21:15)
[2018-10-21] MEDS ORDERED: REXU1TAB3 PO (22:17)
[2018-10-21] MEDS ORDERED: LEXA1TAB PO (22:17)
[2018-10-21] MEDS ORDERED: MOBI4TAB PO (22:17)
[2018-10-21] MEDS ORDERED: PRAZ2CAP PO (22:17)
[2018-10-22] MEDS: ACETAMINOPHEN TAB 650MG DOSE (2X325MG) PO PRN (00:28)
[2018-10-22] MEDS: OLANZapine ORAL DISINTEGRATING TAB 5MG PO PRN (00:28)
[2018-10-22] MEDS: traZODone 50 MG TAB PO PRN ×2 (00:28→21:50)
[2018-10-22 00:47] VITALS: BP 136/72
[2018-10-22 07:06] VITALS: BP 114/58
[2018-10-22] MEDS ORDERED: INFLUENZA QUADRIVALENT PEDIATRIC PF VACCINE 0.25ML SYR (90685) IM ONE (09:00)
[2018-10-22] MEDS ORDERED: INFLUENZA QUADRIVALENT PF VACCINE 0.5ML SYRINGE (90686) IM ONE (09:00)
[2018-10-22 13:51] VITALS: BP 132/86
[2018-10-22 18:00] VITALS: BP 134/84
[2018-10-22] MEDS ORDERED: tiZANidine 4 MG TAB PO PRN (22:30)
--- NOTE | 2018-10-22 22:35 | NUR ---
Patient seen, note to follow.
[2018-10-22] MEDS ORDERED: ESCITALOPRAM OXALATE 10 MG TAB (LEXAPRO) PO ONE (23:15)
[2018-10-23 06:27] VITALS: BP 114/56
[2018-10-23 07:50] LABS: ALBUMIN 3.8 GM/DL (3.2-5.2); ALT/SGPT 80 U/L (12-78); BILIRUBIN,DIRECT 0.1 MG/DL (0.0-0.2); BILIRUBIN,TOTAL 0.3 MG/DL (0.2-1.0); BLOOD UREA NITROGEN 16 MG/DL (7-18); CARBON DIOXIDE LEVEL 27 MEQ/L (21-32); CHLORIDE LEVEL 107 MEQ/L (98-107); CREATININE FOR GFR 1.22 MG/DL (0.70-1.30); GLOMERULAR FILTRATION RATE > 60.0 (>60); GLUCOSE, FASTING 101 MG/DL (70-100); POTASSIUM SERUM 4.4 MEQ/L (3.5-5.1); SODIUM LEVEL 141 MEQ/L (136-145); TOTAL PROTEIN 6.6 GM/DL (6.4-8.2)
[2018-10-23] MEDS: MELOXICAM (MOBIC) 7.5 MG TAB PO SCH (09:20)
[2018-10-23] MEDS: BREXPIPRAZOLE 0.5MG TABLET (REXULTI) PO SCH (10:27)
[2018-10-23] MEDS: ESCITALOPRAM OXALATE 10 MG TAB (LEXAPRO) PO SCH (11:14)
--- NOTE | 2018-10-23 15:20 | HPE ---
DATE OF ADMISSION: 10/22/2018 HISTORY OF THE PRESENT ILLNESS: Please refer to psychiatric history and evaluation for further details on this admission. This examination and history is intended for medical issues which may need treatment, followup, or consult on this 28-year-old male. PRIMARY CARE PROVIDER: [facility] ALLERGIES: No known allergies. SOCIAL HISTORY: He is single. He drinks 1-3 beers per week. Smokes: He says he chews a can a day. Recreational drug use: None. PAST MEDICAL HISTORY: Depression, chronic back pain. He saw Dr. Morrow at [facility]. He has just finished physical therapy. He has degenerative disc disease. PAST SURGICAL HISTORY: Right knee surgery 2013, tonsillectomy and adenoidectomy as a child. HOME MEDICATIONS: - Lexapro 10 mg by mouth daily - gabapentin 300 mg by mouth three times a day - prazosin 2 mg by mouth nightly - Rexulti 1 mg by mouth daily - trazodone 200 mg by mouth nightly - meloxicam 7.5 mg by mouth daily - tizanidine 4 mg by mouth three times a day as needed for muscle spasm FAMILY HISTORY: Noncontributory. LABORATORY DATA: CBC was normal. Sodium 142, potassium 4.0, chloride 107, CO2 was 23, BUN was 17, creatinine 1.3, fasting glucose 109. AST was elevated at 38, ALT elevated at 88. Will do a liver profile in the morning. TSH was 0.737. Urine toxicology was negative. REVIEW OF SYSTEMS: Eleven systems review was done and other than his back pain was unremarkable. PHYSICAL EXAMINATION: A 28-year-old obese male in no acute distress, height 70 inches, weight 140.9 kg, body mass index (BMI) 44.5. Blood pressure 132/86, pulse 88, respirations 18, temperature 98.4, oxygen (O2) saturation 98% on room air. The patient is alert and oriented times three. Pupils are equal and reactive to light. Extraocular movements intact. Cornea and sclerae clear. Conjunctivae is normal. No facial asymmetry. Pharynx: Tongue and gums pink and moist. Tongue is midline. Neck is supple without lymphadenopathy. No thyromegaly. No goiter. Carotids 2+ without bruits. Chest is clear to auscultation without wheeze or retractions. Heart is regular. Abdomen is benign. Bowel sounds are positive. Genital/Rectal: Not done. Extremities: No cyanosis, clubbing or edema. Peripheral pulses equal and palpable bilaterally. Skin is warm and dry. IMPRESSION AND PLAN: Chronic back pain. Will continue meloxicam. Degenerative joint disease. Increase fluids by mouth. Recheck BMP in the morning. Slightly elevated creatinine. Elevated liver function tests (LFTs). Will get a liver profile. EKG shows sinus tachycardia, rate 103, left axis deviation. Chewing tobacco. Patch available.
--- NOTE | 2018-10-23 17:16 | MHHPE ---
DATE OF ADMISSION: 10/21/2018 CHIEF COMPLAINT: Feels suicidal. SUBJECTIVE: He is 28 years old. Has a girlfriend, they have been together for a year or so, she is expecting twin girls any day. The patient says that they have had disagreements lately, including that they are not working, his being on Worker's Compensation, and that he took a job recently "on the side," says did that because of financial concerns, particularly with expected deliveries. He says his girlfriend falsely accused him of seeing someone else, particularly when he was at the second job, he denied it. Says he does not remember that, but felt infuriated, and broke a playpen and then left. Says called various people informing him that he was going to kill himself, planned to jump off a local bridge. Says he informed his counselor of that, Mr. Ruiz, whom he sees once a week, and the police were called. Says a friend of his was around there as well and the patient had climbed over the bridge, preparing to jump, and then was persuaded to not do so. Says does not remember much of that, but acknowledges has been going through a difficult time. He is seen locally, for mental health. Says takes his medicines possibly 50% of the time. He says that he does better mostly when he is regular with his medicines. Does not feel as irritable and is not as easy to upset. It should be noted that the patient has had several hospitalizations, says the last one was at [facility] within the last couple of months. MEDICATIONS: - Lexapro 20 mg daily - Rexulti 1 mg daily - prazosin 2 mg at night - meloxicam 75 mg daily - tizanidine 4 mg as needed for muscle spasms - trazodone 200 mg at bedtime - gabapentin 300 mg three times a day Indicates has nightmares, sometimes related to anticipation about the future and sometimes about matters he has witnessed in the past. PAST PSYCHIATRIC HISTORY: Has had previous hospitalizations, including most recently at [facility] within the last couple of months. FAMILY PSYCHIATRIC HISTORY: Denies any. MEDICAL HISTORY: Workman's Compensation due to one of his shoulders. SOCIAL HISTORY: Currently has a girlfriend, they have been together for a year. She is and expecting their twins. She has other children, one of whom is in a psychiatric hospital just recently. The patient says that he gets alone with the children. MENTAL STATUS EXAMINATION: He is neat. He is cooperative. He is obese. He displays good eye contact. Speech is spontaneous, coherent. Range of fair affect, somewhat incongruent with mood. Denies any plans of harming himself, vague on thoughts. No homicidal ideas or intents. No evidence of any psychosis. Cognition is grossly intact. No fluctuation of consciousness. Judgment and insight are compromised. ASSESSMENT: 1. Major depressive disorder, recurrent, severe. 2. Posttraumatic stress disorder (PTSD) by history. 3. Would consider pathological personality traits. 4. Relationship difficulties, anticipating delivery of babies. The patient has been irritable with difficulties with tolerating frustrations and this impacts his relationship with his girlfriend, possibly chronically. Pathological personality traits may possibly impact his handling of stress as well. PLAN: He is admitted to the inpatient psychiatry unit and placed on relevant precautions. We will look at obtaining collateral information, resume his medications, and the importance will be focused on his taking them regularly. Changes may need to be made depending on the clinical picture. He will receive a medicine consultation if indicated. He will be encouraged to participate in activities on the unit. He will be discharged with followup once stable. I would anticipate a 5 to 7 day stay.
[2018-10-23 18:00] VITALS: BP 139/79
[2018-10-23] MEDS: traZODone 100 MG TAB PO PRN (22:47)
[2018-10-23] MEDS: PRAZOSIN 1 MG CAP PO SCH (22:48)
[2018-10-24 06:31] VITALS: BP 116/66
[2018-10-24] MEDS: MELOXICAM (MOBIC) 7.5 MG TAB PO SCH (08:29)
[2018-10-24] MEDS: ESCITALOPRAM OXALATE 10 MG TAB (LEXAPRO) PO SCH (08:29)
[2018-10-24] MEDS: BREXPIPRAZOLE 0.5MG TABLET (REXULTI) PO SCH (08:29)
--- NOTE | 2018-10-24 09:20 | MHIPN ---
DATE: 10/23/2018 CHIEF COMPLAINT: Says feels stressed. SUBJECTIVE: Seen for followup, in the presence of staff. Says feels stressed, and that there has been no contact with his partner, she has not called either. Says he worries about this, and about the immediate future, since she is expected to deliver twins any day now. Says he has had fair sleep, and that he had done better on the 200 mg of trazodone, has been on it for a little while. MENTAL STATUS EXAMINATION: Neat, cooperative. No agitation. No psychomotor retardation. Affect fairly broad, somewhat incongruent with mood. Denies any suicidal thoughts or intents at present. Cognition grossly intact. No evidence of any psychosis. Judgment and insight remains compromised overall. ASSESSMENT: Major depressive disorder, recurrent, moderate to severe. Posttraumatic stress disorder. PLAN: Continue current care, observations, encourage participation in activities on the unit. He will be seeing the treatment team as well as the assigned psychiatrist tomorrow. We will continue current observations. VITAL SIGNS: Blood pressure 114/56, pulse 59, temperature 97.7.
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
[2018-10-24] MEDS: OLANZapine ORAL DISINTEGRATING TAB 5MG PO PRN (17:51)
[2018-10-24 18:06] VITALS: BP 142/72
[2018-10-24 22:21] VITALS: BP 138/82
[2018-10-24] MEDS: traZODone 100 MG TAB PO PRN (22:21)
[2018-10-24] MEDS: PRAZOSIN 1 MG CAP PO SCH (22:21)
[2018-10-25 06:09] VITALS: BP 96/52
[2018-10-25] MEDS: ESCITALOPRAM OXALATE 10 MG TAB (LEXAPRO) PO SCH (08:44)
[2018-10-25] MEDS: MELOXICAM (MOBIC) 7.5 MG TAB PO SCH (08:44)
[2018-10-25] MEDS: BREXPIPRAZOLE 0.5MG TABLET (REXULTI) PO SCH (08:44)
[2018-10-25] MEDS ORDERED: TIZA4CAP PO (10:27)
[2018-10-25] MEDS ORDERED: LEXA1TAB PO (10:27)
[2018-10-25] MEDS ORDERED: PRAZ2CAP PO (10:27)
[2018-10-25] MEDS ORDERED: MOBI4TAB PO (10:27)
[2018-10-25] MEDS ORDERED: TRAZ-189 PO (10:27)
[2018-10-25] MEDS ORDERED: REXU1TAB3 PO (10:27)
[2018-10-25] MEDS ORDERED: GABA-843 PO (10:27)
[2018-10-25] MEDS: ACETAMINOPHEN TAB 650MG DOSE (2X325MG) PO PRN (10:32)
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
== END 2018-10-25 11:48 | disposition home or self-care (01) | DRG 751 ==
LOC: M ED 16:54 → M ED INP 21:09 → M PSY 23:35
PROVIDERS: ADMIT Psychiatry & Neurology Psychiatry; ATTEND Psychiatry & Neurology Psychiatry
DX: F33.2 Major depressive disorder, recurrent severe without psychotic features (principal); R45.851 Suicidal ideations; F43.10 Post-traumatic stress disorder, unspecified; Z63.9 Problem related to primary support group, unspecified; Z79.899 Other long term (current) drug therapy; F17.220 Nicotine dependence, chewing tobacco, uncomplicated; M51.36 Other intervertebral disc degeneration, lumbar region

== ENCOUNTER 2018-11-13 23:44 | Emergency (ER) | payer MEDICAID, OTHER ==
[~2018-11-13] VITALS: Ht 177.8 cm; Wt 140.9 kg
[~2018-11-13 23:44] MED LIST changes: +LEXA1TAB PO; +MOBI4TAB PO; +PRAZ2CAP PO; +REXU1TAB3 PO
[2018-11-14 01:15] LABS: BASO # 0.1 10^3/uL (0.0-0.2); BASO % 0.7 % (0.0-1.0); EOS # 0.4 10^3/uL (0.0-0.50); EOS % 4.3 % (0.0-3.0); HEMATOCRIT 41.7 % (42.0-52.0); HEMOGLOBIN 14.4 g/dl (13.5-17.5); LYMPH # 2.9 10^3/uL (1.5-4.5); LYMPH % 33.5 % (24.0-44.0); MEAN CORPUSCULAR HEMOGLOBIN 29.4 pg (27.0-33.0); MEAN CORPUSCULAR HGB CONC 34.5 g/dl (32.0-36.5); MEAN CORPUSCULAR VOLUME 85.3 fl (80.0-96.0); MONO # 0.7 10^3/uL (0.0-0.8); MONO % 8.4 % (0.0-5.0); NEUTROPHILS # 4.5 10^3/uL (1.8-7.7); NEUTROPHILS % 52.7 % (36.0-66.0); PLATELET COUNT, AUTOMATED 310 10^3/uL (150-450); RED BLOOD COUNT 4.89 10^6/uL (4.30-6.10); WHITE BLOOD COUNT 8.5 10^3/uL (4.0-10.0)
[2018-11-14 01:29] LABS: INR 0.88
[2018-11-14 01:30] LABS: PARTIAL THROMBOPLASTIN TIME 25.2 SECONDS (25.4-37.6)
[2018-11-14 01:38] LABS: ALBUMIN 3.5 GM/DL (3.2-5.2); ALT/SGPT 104 U/L (12-78); BILIRUBIN,DIRECT < 0.1 MG/DL (0.0-0.2); BILIRUBIN,TOTAL 0.3 MG/DL (0.2-1.0); BLOOD UREA NITROGEN 22 MG/DL (7-18); CARBON DIOXIDE LEVEL 26 MEQ/L (21-32); CHLORIDE LEVEL 107 MEQ/L (98-107); CREATININE FOR GFR 1.13 MG/DL (0.70-1.30); GLOMERULAR FILTRATION RATE > 60.0 (>60); GLUCOSE, FASTING 99 MG/DL (70-100); POTASSIUM SERUM 4.1 MEQ/L (3.5-5.1); SODIUM LEVEL 141 MEQ/L (136-145)
[2018-11-14 03:18] VITALS: BP 126/62
== END 2018-11-14 04:00 | disposition home or self-care (01) ==
LOC: M ED 23:44
DX: K62.5 Hemorrhage of anus and rectum (principal); E66.9 Obesity, unspecified; F32.9 Major depressive disorder, single episode, unspecified; F43.10 Post-traumatic stress disorder, unspecified; Z72.0 Tobacco use; Z79.899 Other long term (current) drug therapy

== ENCOUNTER → 2019-01-18 | Outpatient (REF) | payer OTHER ==
[~2019-01-18] MED LIST changes: +TRAZ1TAB10 PO; -TRAZO50TA PO
== END ==
LOC: M LAB REF 17:05
PROVIDERS: ATTEND Physician Assistant
DX: J02.9 Acute pharyngitis, unspecified (principal)

== ENCOUNTER 2019-04-24 08:23 | Day surgery (SDC) | payer OTHER, SELFPAY ==
[~2019-04-24] VITALS: Ht 177.8 cm; Wt 139.9 kg
[~2019-04-24 08:23] MED LIST changes: +LIDOCAINE 1% MDV 20ML VIAL SQ PRN; +LR 1,000 ML IV ONE; +ceFAZolin SOD 2 GM in IV 1 EA IV ONE
[2019-04-24] MEDS ORDERED: ROPIvacaine 0.5% 30 ML INJECTION (J2795 PER 1MG) ONE (08:24)
[2019-04-24] MEDS ORDERED: LIDOCAINE 1% MDV 20ML VIAL ONE (08:24)
[2019-04-24] MEDS ORDERED: EPINEPHrine INJ 1 MG/ML 1ML AMP ONE (08:24)
[2019-04-24] MEDS ORDERED: PROPOFOL 200 MG/20 ML VIAL As Ordered ONE ×2 (09:22→12:37)
[2019-04-24] MEDS ORDERED: ONDANSETRON 4MG/2ML VIAL (J2405) As Ordered ONE (09:22)
[2019-04-24] MEDS ORDERED: LIDOCAINE 2% INJ 100 MG/5 ML SDV (FOR ANES.) As Ordered ONE (09:22)
[2019-04-24] MEDS ORDERED: SUGAMMADEX SODIUM 500 MG/5 ML VIAL (BRIDION) As Ordered ONE (09:22)
[2019-04-24] MEDS ORDERED: ROCURONIUM BROMIDE 50 MG/5 ML VIAL As Ordered ONE ×2 (09:22→12:36)
[2019-04-24] MEDS ORDERED: fentaNYL 100 MCG/2 ML INJECTION (J3010) As Ordered ONE ×3 (09:23→12:35)
[2019-04-24] MEDS ORDERED: dexameTHASONE 4 MG/ML 1ML VIAL (J1100) As Ordered ONE (09:23)
[2019-04-24] MEDS ORDERED: MIDAZOLAM INJ 2 MG/2 ML VIAL (J2250) As Ordered ONE ×2 (09:23→09:44)
[2019-04-24] MEDS ORDERED: KETOROLAC 60 MG/2 ML VIAL (J1885) As Ordered ONE (09:26)
[2019-04-24] MEDS ORDERED: ACETAMINOPHEN 1000MG 100ML IV BTL (OFIRMEV) (J0131 PER 10MG) As Ordered ONE (09:31)
[2019-04-24] MEDS: MIDAZOLAM INJ 2 MG/2 ML VIAL (J2250) IV PRN ×2 (10:10→10:16)
[2019-04-24] MEDS ORDERED: EPINEPHrine 1MG/ML INJ 30ML MD-VIAL As Ordered ONE (10:12)
[2019-04-24] MEDS ORDERED: LIDOCAINE 1% MDV 20ML VIAL As Ordered ONE (10:54)
[2019-04-24] MEDS ORDERED: fentaNYL 100 MCG/2 ML INJECTION (J3010) IV PRN ×2 (11:15→15:00)
[2019-04-24] MEDS ORDERED: ceFAZolin 1GM INJ (J0690 PER 500MG) As Ordered ONE (11:34)
[2019-04-24] MEDS ORDERED: LR 1,000 ML IV SCH ×2 (15:00→16:00)
[2019-04-24] MEDS ORDERED: ONDANSETRON 4MG/2ML VIAL (J2405) IV PRN (15:00)
[2019-04-24] MEDS ORDERED: PERCOCET 5MG/325MG TAB PO PRN (15:00)
[2019-04-24] MEDS ORDERED: METOCLOPRAMIDE INJ 10MG/2ML VIAL (J2765) IV PRN (15:00)
[2019-04-24 15:52] VITALS: BP 141/86
--- NOTE | 2019-04-25 00:36 | RO ---
DATE OF PROCEDURE: 04/24/2019 PREOPERATIVE DIAGNOSES: 1. Partial thickness subscapularis tear. 2. Left shoulder superior labral tear. 3. Left shoulder impingement. 4. Left shoulder acromioclavicular joint arthritis. POSTOPERATIVE DIAGNOSES: 1. Partial thickness subscapularis tear. 2. Left shoulder superior labral tear. 3. Left shoulder impingement. 4. Left shoulder acromioclavicular joint arthritis PROCEDURE: 1. Left shoulder arthroscopic rotator cuff repair (subscapularis). 2. Left shoulder open subpectoral biceps tenodesis. 3. Left shoulder arthroscopic subacromial decompression. 4. Left shoulder arthroscopic distal clavicle excision. SURGEON: Nicholas Cisneros MD [employer] CAPTAIN: LEXI Tello ANESTHESIA: General with preoperative nerve block. IV FLUIDS: Lactated Ringer's. ESTIMATED BLOOD LOSS: 20 mL. IMPLANTS; Arthrex proximal biceps tenodesis button times one, Arthrex 4.75 mm PEEK SwiveLock anchor times one. CLOSURE: Monocryl and nylon. DESCRIPTION OF PROCEDURE: The patient was identified in the preoperative holding area. The left shoulder marked by myself. He had an interscalene nerve block by anesthesia. He was brought to the operating room, placed supine on a well-padded operating room (OR) table. General anesthesia was induced. Exam under anesthesia revealed 170 degrees of forward flexion, 80 of external rotation with his arm at his side, and no increased anterior-posterior translation. He was then placed into the right side down lateral decubitus position with an axillary roll and all bony prominences were well padded. Bilateral Venodyne boots for deep vein thrombosis (DVT) prophylaxis. An axillary roll was placed. After he was carefully secured to the OR table with extra straps, the left arm was placed into the Arthrex STaR Sleeve lateral decubitus traction land with 10 pounds of traction. The left shoulder was then prepped and draped in the normal sterile fashion. He received 3 grams of IV cefazolin for antibiotic prophylaxis. Prior to incision, time-out was performed per hospital protocol. Estela Rodriguez was present for the entire procedure and participated in all essential portions of the procedure. This included patient positioning, draping, holding the arthroscope, holding retractors during the biceps tenodesis, assisting with the whipstitch, assisting with anchor placement, wound closure and applying the sling. Given the patient's size, this was a very challenging case and would not have been possible without a skilled international first officer. The left shoulder was insufflated with lactated Ringer's. A standard 30-degree arthroscope was introduced into the joint and diagnostic arthroscopy revealed grade 1 chondromalacia with two small flaps of articular cartilage of the glenoid. Humeral head was in good condition. The subscapularis was obscured by both a modified [place] complex and extensive tearing of the superior labrum. There was a type 4 superior labral tear. There were also abnormal attachments of the long head of the biceps to the supraspinatus. The posterior rotator cuff was intact. The supraspinatus had a very thin flaps tear of the articular surface; overall very low grade tearing. An anterior working portal was established through the rotator interval and a purple Arthrex cannula placed. Supraspinatus tear was debrided with the shaver. The superior labral tear was debrided with the shaver. The biceps labral anchor was highly unstable. I used arthroscopic scissors to release the abnormal connections of the long head of the biceps to the supraspinatus. The meniscal punch was then used to perform a tenotomy of the biceps. The stump was debrided with a shaver. The shaver was used to clear out soft tissue in the rotator interval, as well as radiofrequency cautery. There appeared to be lift off with tearing of the upper subscapularis; however, it was poorly visualized so I had to use cautery to release the upper two-thirds of the middle glenohumeral ligament. Once that was released, I then had excellent visualization of subscapularis, and there was longitudinal split tearing, and there was some lift off on the posterior lever push. Based on his preoperative MRI and intraoperative findings, I felt that a subscapularis repair was required. I then proceeded with an open biceps tenodesis. An incision was made with a15 blade just lateral to the axilla and then 1% lidocaine was injected for local anesthetic. Careful subcu dissection with Metzenbaum scissors down to the bicipital groove. The long head of the biceps tendon was identified. Despite performing several soft tissue releases, I was unable to free up the long head of the biceps despite observing it withdraw from the joint previously. I therefore applied maximal traction to the biceps and then released it with electrocautery as high proximal in the bicipital groove as possible. There was sufficient tendon to still perform a biceps tenodesis. The proximal biceps tenodesis kit from Arthrex was opened, a running locking whipstitch placed with the FiberLoop and then the sutures were passed through the button, per routine. The appropriate drill hole location was marked with cautery and then a unicortical drill hole made with the spade tip drill bit. Bony debris removed with irrigation. Button was passed through the drill hole on its roof truss detailer, and the button was flipped, sutures were toggled which flipped the button, and then the tendon was tensioned. This nicely restored the resting tension. The curve-free needle was used to pass one limb of FiberWire back to the tendon and then the knots were tied by hand to lock the construct in place. The incision was irrigated and then closed in a layered fashion with #2-0 Vicryl, #2-0 Vicryl running and a Monocryl. At the end of the case, Steri-Strips were placed. The arthroscope was placed back into the joint, and an accessory superolateral portal was made. Julian and Ring curette were used to clear soft tissue off the lesser tuberosity to create a bleeding surface. The Scorpion was used to pass FiberTape through the upper one-third of the subscapularis but further medial through healthier tissue. Those sutures were retrieved out the original anterior portal and loaded through a 4.75 mm PEEK SwiveLock anchor. A socket was created in the lesser tuberosity with the awl and then the anchor was docked, sutures tensioned, and the anchor inserted by hand with excellent fixation. Excess suture cut with the outside cutter hand. This nicely restored the subscapularis. The arthroscope was then placed into the subacromial space where there was extensive bursitis, and a lateral working portal was established and then a bursectomy performed with shaver and cautery. I had difficulty gaining access to the acromioclavicular (AC) joint via the posterior portal given the patient's body habitus, so the scope was placed through the lateral portal which gave better view for the AC joint and then through the anterior working portal soft tissues cleared out from the AC joint. There was bone on bone contact in the posterior portion of the AC joint and then a bur was used to perform a distal clavicle excision. I removed approximately 6 mm to distal clavicle. The shoulder was then irrigated and drained. I should mention that I removed bone from both sides of the AC joint, the undersurface of the acromion consistent with an acromioplasty as well as the distal clavicle. The shoulder was irrigated and drained. Portals closed with nylon suture. Bulky sterile dressing was applied. He was then extubated and transferred to post-anesthesia care unit (PACU) in stable condition. All counts correct times two. Edited 04/25/2019 juanjose
== END 2019-04-24 16:37 | disposition home or self-care (01) ==
LOC: M SDC 08:23
PROVIDERS: ATTEND Orthopaedic Surgery
DX: M75.112 Incomplete rotator cuff tear or rupture of left shoulder, not specified as traumatic (principal); M75.42 Impingement syndrome of left shoulder; M19.012 Primary osteoarthritis, left shoulder; S43.432A Superior glenoid labrum lesion of left shoulder, initial encounter; Z79.899 Other long term (current) drug therapy; M92.40 Juvenile osteochondrosis of patella, unspecified knee; F43.10 Post-traumatic stress disorder, unspecified; E66.9 Obesity, unspecified; F17.220 Nicotine dependence, chewing tobacco, uncomplicated; Y92.89 Other specified places as the place of occurrence of the external cause; Y93.9 Activity, unspecified
CPT/HCPCS: 23430; 29824; 29826; 29827; 64415; 88305; C1713; J0131; J0690; J1100; J1885; J2250; J2405; J2795; J3010

== ENCOUNTER 2020-07-26 19:57 | Emergency (ER) | payer OTHER ==
[~2020-07-26] VITALS: Ht 177.8 cm; Wt 147.8 kg
[~2020-07-26 19:57] MED LIST changes: +GABA-282 PO; -GABA-843 PO; -LIDOCAINE 1% MDV 20ML VIAL SQ PRN; -LR 1,000 ML IV ONE; -ceFAZolin SOD 2 GM in IV 1 EA IV ONE
--- NOTE | 2020-07-26 21:02 | REPVR ---
PROCEDURE INFORMATION: Exam: US Duplex Left Lower Extremity Veins, Limited Exam date and time: 07/26/2020 8:17 PM Age: 30 years old Clinical indication: Pain; Leg, lower; Left; Additional info: Swelling/tender TECHNIQUE: Imaging protocol: Real-time Duplex ultrasound of the Left Lower Extremity with 2-D yarbrough scale, color Doppler flow and spectral waveform analysis with image documentation. Limited exam focused on the left lower extremity veins. COMPARISON: US Duplex, Ext,LOWER veins,unilat 10/17/2017 7:58 PM FINDINGS: Left deep veins: Unremarkable. The common femoral, femoral, proximal profunda femoral and popliteal veins are patent without thrombus. Normal Doppler waveforms. Normal compressibility and/or augmentation response. Left superficial veins: Clotted superficial varicosities demonstrated in the proximal medial calf corresponding to the area of tenderness and palpable abnormality. Saphenofemoral junction is patent without thrombus. Soft tissues: Unremarkable. IMPRESSION: 1. No evidence of deep vein thrombosis. 2. Thrombosed SVT proximal medial calf as described above. Electronically signed by: Zak Jaffe On 07/26/2020 21:02:04 PM
[2020-07-26] MEDS ORDERED: IBUP80TA PO (22:01)
[2020-07-26 22:17] VITALS: BP 155/89
== END 2020-07-26 22:29 | disposition home or self-care (01) ==
LOC: M ED 19:57
DX: I80.02 Phlebitis and thrombophlebitis of superficial vessels of left lower extremity (principal); F41.9 Anxiety disorder, unspecified; F33.9 Major depressive disorder, recurrent, unspecified; F43.10 Post-traumatic stress disorder, unspecified; F17.220 Nicotine dependence, chewing tobacco, uncomplicated

== ENCOUNTER 2021-04-17 09:42 | Emergency (ER) | payer OTHER ==
[~2021-04-17] VITALS: Ht 177.8 cm; Wt 131.8 kg
--- OUTSIDE RECORDS SUMMARY | 2021-04-17 09:47 | CCD ---
Author Author [facility] Organization [facility] Address Unknown Phone Unavailable Care Team Providers Care Business Continuity Planner Name Role Phone Maring, Josr PA Unavailable Unavailable Maring, Josr PA Unavailable Unavailable Maring, Josr PA Unavailable Unavailable Maring, Josr PA Unavailable Unavailable Maring, Josr PA Unavailable Unavailable Maring, Josr PA Unavailable Unavailable Maring, Josr PA Unavailable Unavailable Maring, Josr PA Unavailable Unavailable Maring, Josr PA Unavailable Unavailable Maring, Josr PA Unavailable Unavailable Maring, Josr PA Unavailable Unavailable Maring, Josr PA Unavailable Unavailable Maring, Josr PA Unavailable Unavailable Maring, Josr PA Unavailable Unavailable Maring, Josr PA Unavailable Unavailable Maring, Josr PA Unavailable Unavailable Hale, Patrick Unavailable Unavailable Hale, Patrick Unavailable Unavailable Hale, Patrick Unavailable Unavailable Hale, Patrick Unavailable Unavailable Hale, Patrick Unavailable Unavailable Hale, Patrick Unavailable Unavailable Hale, Patrick Unavailable Unavailable Hale, Patrick Unavailable Unavailable Hale, Patrick Unavailable Unavailable Hale, Patrick Unavailable Unavailable Hale, Patrick Unavailable Unavailable Hale, Patrick Unavailable Unavailable Hale, Patrick Unavailable Unavailable Hale, Patrick Unavailable Unavailable Hale, Patrick Unavailable Unavailable Hale, Patrick Unavailable Unavailable Hale, Patrick Unavailable Unavailable Hale, Patrick Unavailable Unavailable Hale, Patrick Unavailable Unavailable Hale, Patrick Unavailable Unavailable Hale, Patrick Unavailable Unavailable Hale, Patrick Unavailable Unavailable Hale, Patrick Unavailable Unavailable Hale, Patrick Unavailable Unavailable Hale, Patrick Unavailable Unavailable Hale, Patrick Unavailable Unavailable Hale, Patrick Unavailable Unavailable Hale, Patrick Unavailable Unavailable Hale, Patrick Unavailable Unavailable Hale, Patrick Unavailable Unavailable Hale, Patrick Unavailable Unavailable Hale, Patrick Unavailable Unavailable Hale, Patrick Unavailable Unavailable Hale, Patrick Unavailable Unavailable Hale, Patrick Unavailable Unavailable Hale, Patrick Unavailable Unavailable Hale, Patrick Unavailable Unavailable Hale, Patrick Unavailable Unavailable Hale, Patrick Unavailable Unavailable Hale, Patrick Unavailable Unavailable Hale, Patrick Unavailable Unavailable Hale, Patrick Unavailable Unavailable Hale, Patrick Unavailable Unavailable Hale, Patrick Unavailable Unavailable Hale, Patrick Unavailable Unavailable SHAHIDA, M LIZBETH PA Unavailable Unavailable SHAHIDA, M LIZBTEH PA Unavailable Unavailable SHAHIDA, M LIZBETH PA Unavailable Unavailable SHAHIDA, M LIZBETH PA Unavailable Unavailable SHAHIDA, M LIZBETH PA Unavailable Unavailable SHAHIDA, M LIZBETH PA Unavailable Unavailable SHAHIDA, M LIZBETH PA Unavailable Unavailable SHAHIDA, M LIZBETH PA Unavailable Unavailable SHAHIDA, M LIZBETH PA Unavailable Unavailable SHAHIDA, M LIZBETH PA Unavailable Unavailable SHAHIDA, M LIZBETH PA Unavailable Unavailable SHAHIDA, M LIZBETH PA Unavailable Unavailable SHAHIDA, M LIZBETH PA Unavailable Unavailable SHAHIDA, M LIZBETH PA Unavailable Unavailable SHAHIDA, M LIZBETH PA Unavailable Unavailable SHAHIDA, M LIZBETH PA Unavailable Unavailable SHAHIDA, M LIZBETH PA Unavailable Unavailable SHAHIDA, M LIZBETH PA Unavailable Unavailable SHAHIDA, M LIZBETH PA Unavailable Unavailable SHAHIDA, M LIZBETH PA Unavailable Unavailable SHAHIDA, M LIZBETH PA Unavailable Unavailable SHAHIDA, M LIZBETH PA Unavailable Unavailable SHAHIDA, M LIZBETH PA Unavailable Unavailable SHAHIDA, M LIZBETH PA Unavailable Unavailable Re-disclosure Warning The records that you are about to access may contain information from federally-assisted alcohol or drug abuse programs. If such information is present, then the following federally mandated warning applies: This information has been disclosed to you from records protected by federal confidentiality rules (42 CFR part 2). The federal rules prohibit you from making any further disclosure of this information unless further disclosure is expressly permitted by the written consent of the person to whom it pertains or as otherwise permitted by 42 CFR part 2. A general authorization for the release of medical or other information is NOT sufficient for this purpose. The Federal rules restrict any use of the information to criminally investigate or prosecute any alcohol or drug abuse patient.The records that you are about to access may contain highly sensitive health information, the redisclosure of which is protected by Article 27-F of the [facility] Public Health law. If you continue you may have access to information: Regarding HIV / AIDS; Provided by facilities licensed or operated by the [facility] Office of Mental Health; or Provided by the [facility] Office for People With Developmental Disabilities. If such information is present, then the following [facility] mandated warning applies: This information has been disclosed to you from confidential records which are protected by state law. State law prohibits you from making any further disclosure of this information without the specific written consent of the person to whom it pertains, or as otherwise permitted by law. Any unauthorized further disclosure in violation of state law may result in a fine or correction sentence or both. A general authorization for the release of medical or other information is NOT sufficient authorization for further disc losure. Family History Family Member Name Family Member Gender Family Member Status Date o f Status Description Data Source(s) Unknown Unknown Problem [facility] ([facility]) sister Unknown Male Problem [facility] ([facility]) Encounters Encounter Providers Location Date Indications Data Source(s ) Outpatient 04/17/2021 08:22:25 AM EDT - 021 08:33:41 AM EDT [facility] ([facility]) Outpatient Attender: Josr ELLIOTT 02/05/20 02:59:09 PM EDT - 02/04/2021 03:40:06 PM EDT [facility] ([facility] ) Outpatient Attender: Josr ELLIOTT 10/28/19 11:06:45 AM EDT - 10/27/2020 11:36:10 AM EDT [facility] ([facility] ) Outpatient Attender: LIZBETH ELLIOTT Physical Therapy 07/2019 09:15:00 AM EDT [facility] ([facility]) Outpatient Attender: Patrick Hale Physical Therapy 03/08/2020 03:55:0 0 PM EDT [facility] ([facility] ) Medications Medication Brand Name Start Date Product Form Dose Route Admi nistrative Instructions Pharmacy Instructions Status Indications Reaction Description Data Source(s) 800 mg 03/30/2021 12:00:00 AM EDT tablet 30 TAKE 1 TABLET BY MOUTH THREE TIMES A DAY FOR 10 DAYS TAKE 1 TABLET BY MOUTH THREE TIMES A DAY FOR 10 DAYS SOLD: 03/30/2021 [facility] 0.3 % 03/30/2021 12:00:00 AM EDT drops 5 INSTILL 1-2 DROPS IN THE LEFT EYE EVERY HOUR WHILE AWAKE FOR 1 DAY THEN FOUR TIMES A DAY FOR 5 DAYS INSTILL 1-2 DROPS IN THE LEFT EYE EVERY HOUR WHILE AWAKE FOR 1 DAY THEN FOUR TIMES A DAY FOR 5 DAYS SOLD: 03/30/2021 [facility] 800 mg 10/27/2020 12:00:00 AM EDT tablet 30 TAKE ONE TABLET BY MOUTH THREE TIMES A DAY FOR 10 DAYS TAKE ONE TABLET BY MOUTH THREE TIMES A DAY FOR 10 DAYS SOLD: 10/27/2020 [facility] duloxetine 20 MG Delayed Release Oral Capsule Duloxetine HCL 04/04/2020 12:00:00 AM EDT ORAL active [facility] Insurance Providers Payer name Policy type / Coverage type Policy ID Covered democrat ID Covered democrat's relationship to land Policy Land Plan Information [facility] [place] () Workers Compensation [id number] Self [id number] [place] () Workers Compensation [id number] Self [id number] [place] () Workers Compensation [id number] 2.840.1.217182.3.227.99.991.300174.0 Self [id number] [place] () Workers Compensation [id number] 2.840.1.284191.3.227.99.991.532424.0 Self [id number] [place] Workers Compensation [id number] 2.16.840.1.187961.3.227.99.991.384035.0 Self [id number] [place] Workers Compensation [id number] 2.16.840.1.119976.3.227.99.991.091404.0 Self [id number] [place] Workers Compensation [id number] 2.16.840.1.075769.3.227.99.991.257801.0 Self [id number] [place] Workers Compensation [id number] 2.16.840.1.731264.3.227.99.991.028351.0 Self [id number] [place] Workers Compensation [id number] 2.16.840.1.997613.3.227.99.991.436115.0 Self [id number] [place] Workers Compensation [id number] 2.16.840.1.687322.3.227.99.991.463644.0 Self [id number] [place] Workers Compensation [id number] Self [id number] [place] Workers Compensation [id number] 2.16.840.1.176884.3.227.99.991.961450.0 Self [id number] [place] Workers Compensation [id number] Self [id number] [employer] Blue Option Medigap Part B [id number] 2.16.840.1.537881.3.227.99.991.324326.0 Self [id number] [employer] [place] [employer] Option Medigap Part B [id number] 2.16.840.1.972496.3.227.99.991.691230.0 Self [id number] [employer] [place] [employer] Option Medigap Part B [id number] 2.16840.1.848023.3.227.99.991.589438.0 Self [id number] [place] [employer] Option Medigap Part B [id number] 2.16840.1.443090.3.227.99.991.599126.0 Self [id number] [employer] [place] [employer] Option Medigap Part B [id number] 2.0.1.538993.3.227.99.991.534124.0 Self [id number] [place] [employer] Option Medigap Part B [id number] 2.0.1.117543.3.227.99.991.415089.0 Self [id number] [employer] [place] [employer] Option Medigap Part B [id number] 2.0.1.741410.3.227.99.991.980986.0 Self [id number] [employer] [place] [employer] Option Medigap Part B [id number] Self [id number] [place] [employer] Option Medigap Part B [id number] Self [id number] [place] [employer] Option Medigap Part B [id number] 2.0.1.431403.3.227.99.991.593875.0 Self [id number] [place] [employer] Option Medigap Part B [id number] 2.0.1.241070.3.227.99.991.315203.0 Self [id number] [place] [employer] Option Medigap Part B [id number] 2.0.1.178375.3.227.99.991.326809.0 Self [id number] [place] [employer] Blue Option Medigap Part B [id number] Self [id number] Medicaid S [id number] S [id number] [facility] Commercial F [id number] SELF [id number] [facility] P [id number] S [id number] [place] ([place] Workers Compensation [id number] .0.1.472050.3.227.99.991.125610.0 Self [id number] [place] Workers Compensation [id number] 2.0.1.401503.3.227.99.991.031602.0 Self [id number] [place] Workers Compensation [id number] Self [id number] [place] Workers Compensation [id number] .0.1.555291.3.227.99.991.491836.0 Self [id number] [place] Workers Compensation [id number] 08.20.830.1.417323.3.227.99.991.572859.0 Self [id number] Medicaid S [id number] S [id number] [facility] P [id number] S [id number] Medicaid S [id number] S [id number] Managed Care Chao P [id number] S [id number] Workers Comp Carrier I WorkComp Health Claim [id number] Emplo bell [id number] WorkComp [place]rier [place] WorkComp Health Claim [id number] Employee [id number] [id number] Self [id number] [id number] Self [id number] HMO BLUE [id number] SP [id number] BLUE CROSS BEAN PLAN UNAVAILABLE SP UNAVAILABLE CHAO [id number] SP [id number] 600 [id number] CHAO CARE [place] O [id number] S [id number] CHAO [id number] SP [id number] [facility] [id number] SP [id number] ONE CALL CARE MANAGEMENT O [id number] S [id number] [facility] O [id number] S [id number] [facility] [id number] S [id number] Managed Care - [facility] P [id number] S [id number] [facility] [id number] SP [id number] CHAO [id number] SP [id number] SELF PAY ONLY [id number] SP [id number] [facility] O [id number] S [id number] SELF PAY ONLY [id number] SP [id number] [facility] COMMUNITY PLAN MCDO [id number] SP [id number] [facility] Community Plan Commercial [id number] Self [id number] [facility] [id number] SP [id number] MEDICAID [id number] SP [id number] [facility] WC CLAIMS [id number] SP [id number] [facility] Community Plan Commercial [id number] Self [id number] [facility] [id number] SP [id number] [facility] Health Maintenance Organization (HMO) [id number]9.1767.92603.0 Self [id number] ONE [employer] CARE MANAGEMENT O [id number] S [id number] ONE [employer]ARE MANAGEMENT O [id number] S [id number] ONE CALL CARE MANAGEMENT O [id number] S [id number] [facility] Commercial F [id number] SELF [id number] [facility] Health Maintenance Organization (O) [id number] Self [id number] [facility] Health Maintenance [facility] ([facility]) [id number] 2.16.840.1.306398.3.227.99.1767.55561.0 Self [id number] [facility] Health Maintenance Organization ([facility]) [id number] 2.16.840.1.419760.3.227.99.1767.25020.0 Self [id number] ONE CALL CARE MANAGEMENT O [id number] S [id number] [place] CLAIMS O [id number] S [id number] MEDICAID M [id number] S [id number] UN COMMUNITY PLAN MCDO [id number] SP [id number] Medicaid S [id number] S [id number] Self Pay P UNAVAILABLE S UNAVAILA BLE [employer] [place] WC CLAIMS [id number] SP [id number] [employer] [id number] SP [id number] HB ESCALONA O [id number] S [id number] OTHER WORKERS COMPENSATI O [id number] O [id number] HB ESCALONA [id number] SP [id number] [facility]) P [id number] O [id number] [employer] P [id number] O [id number] 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 ID Date Data Source [id number] 04/09/2021 12:00:00 AM EDT [facility] Name Value Range Interpretation Code Description Data Day rce(s) Supporting Document(s) SARS-CoV2 Rapid Antigen Negative [facility] This lab was ordered by [facility] and reported by [facility]. ID Date Data Source [id number] 02/04/2021 03:30:00 PM EDT [facility] Name Value Range Interpretation Code Description Data Day rce(s) Supporting Document(s) SARS-CoV-2 RNA Resp Ql JUANA+probe NOT DETECTED [facility] This lab was ordered by MILADY parikh and reported by [facility] Alcocer. Procedure Social History No Information
--- OUTSIDE RECORDS SUMMARY | 2021-04-17 09:47 | CCD | Continuity of Care Document ---
Author Author [facility] Organization Unknown Address [address] [place] [address] Phone [phone] Care Team Providers Care Template Reproduction Technician Name Role Phone Eugenio Bedoya AUTM [phone] Rozina Shepard NP AUTM [phone] Problems Active Problems Provider Date Abnormal sexual function Onset: 08/23/19 18 Adult health examination Onset: 08/23/19 18 Anxiety Onset: 08/23/2017 Body mass index 40+ - severely obese Ons et: 12/23/2017 Chews products containing tobacco Onset: 08/23/2017 Chronic depression Onset: 08/23/2017 Chronic low back pain Onset: 05/24/2018 Influenza vaccine needed Onset: 08/04/19 19 Morbid obesity Onset: 02/09/2018 Numbness of hand Onset: 11/03/2018 Pain in lower limb Onset: 12/23/2017 Pain of right elbow joint Onset: 019 Posttraumatic stress disorder Onset: Tear of left rotator cuff Onset: 018 Vaccination required Onset: 08/04/2018 Social History Type Date Description Comments Sex Unknown ETOH Use Occasionally consumes alcohol Tobacco Use Start: Unknown End: Unknown Patient is a former smoker Smoking Status Reviewed: 10/25/19 Patient is a former smoker Allergies and adverse reactions Description No Known Drug Allergies Medications Active Medications SIG Qnty Indications Ordering Provide r Date Duloxetine HCL 20mg Caps DR Part 1 by mouth every morning x2 weeks then increase to 2 caps by mouth daily (wc) 60caps M50.30 Patrick Hale MD 04/04/2020 Tizanidine HCL 4mg Tablets 1 by mouth three times a day (WC) May Cause Drowziness 60tabs M50.30 Daniel Hale MD 02/07/2020 Ibuprofen 600mg Tablets 1 tab by mouth every 8 hrs as needed for post surgical pain 90tabs And rew Deirdre Cisneros MD 04/24/2019 Meloxicam 15mg Tablets Take One Tablet By Mouth Every Day Unknown Immunizations CPT Code Status Date Vaccine Lot # [id number] Refused 08/23/2017 Influenza Virus Split 3 Yrs And Above Dosage Vital Signs Date Vital Result Comment 05/03/2019 10:00am Body Temperature 98.2 F 03/08/2019 1:08pm Body Temperature 97.9 F Height 68 inches 5'8" Weight 300.00 lb BMI (Body Mass Index) 45.6 kg/m2 Results Description No Information Available Procedures Description No Information Available Medical Devices Description No Information Available Encounters Description No Information Available Assessments Description No Information Available Plan of Treatment 04/04/2020 - LEXI Umanzor* M47.892 Other spondylosis, cervical region * M50.320 Other cervical disc degeneration, mid-cervical region, unspecified level * M54.13 Radiculopathy, cervicothoracic region * M50.31 Other cervical disc degeneration, high cervical region * All * New Medication:* Duloxetine HCL 20 mg - 1 by mouth every morning x2 weeks then increase to 2 caps by mouth daily (wc) Functional Status Description No Information Available Mental Status Description No Information Available Referrals Description No Information Available
--- OUTSIDE RECORDS SUMMARY | 2021-04-17 09:47 | CCD | Continuity of Care Document ---
Author Author Dex CISNEROS [facility] Organization Unknown Address [address] [place] [address] Phone [phone] Care Team Providers Care Research Physician Name Role Phone Eugenio Bedoya AUTM [phone] Rozina Shepard NP AUTM [phone] Problems Active Problems Provider Date Abnormal sexual [...] CPT Code Status Date Vaccine Lot # [id number] Refused 08/23/2017 Influenza Virus Split 3 Yrs [...]
--- NOTE | 2021-04-17 10:50 | REP ---
INDICATION: chest pressure COMPARISON: 10/21/2018 TECHNIQUE: Portable AP view of the chest FINDINGS: The mediastinum and cardiac silhouette are stable and within normal limits for portable technique. The lung adams are clear without acute consolidation, effusion, or pneumothorax. Skeletal structures are intact. IMPRESSION: No acute cardiopulmonary process appreciated. <Electronically signed by Eugenio Austin > 04/17/21 1049
--- NOTE | 2021-04-17 11:23 | REP ---
INDICATION: swelling COMPARISON: None. TECHNIQUE: Kiser scale and color Doppler evaluation using linear high frequency transducer. FINDINGS: Ultrasound examination of the left lower extremity deep venous structures from the common femoral vein through the calf/ankle to include the peroneal, and tibial veins demonstrates normal compressibility flow and wave patterns in response to respiration and augmentation. There is no evidence for deep venous thrombosis. Contralateral CFV is patent and normal. Further directed ultrasound examination along the calf at the site of abrasions demonstrates mild underlying subcutaneous edema without obvious focal fluid collection. IMPRESSION: No evidence for deep venous thrombosis. <Electronically signed by Eugenio Austin > 04/17/21 1113
[2021-04-17 11:30] LABS: BASO % 0.3 % (0.0-1.0); EOS # 0.3 10^3/uL (0.0-0.5); EOS % 2.8 % (0.0-3.0); HEMATOCRIT 42.7 % (42.0-52.0); HEMOGLOBIN 14.7 g/dl (13.5-17.5); LYMPH # 1.3 10^3/uL (1.5-5.0); MEAN CORPUSCULAR HEMOGLOBIN 28.9 pg (27.0-33.0); MEAN CORPUSCULAR HGB CONC 34.4 g/dl (32.0-36.5); MEAN CORPUSCULAR VOLUME 83.9 fl (80.0-96.0); MONO # 0.7 10^3/uL (0.0-0.8); MONO % 6.6 % (2.0-8.0); NEUTROPHILS # 8.3 10^3/uL (1.5-8.5); PLATELET COUNT, AUTOMATED 339 10^3/uL (150-450); RED BLOOD COUNT 5.09 10^6/uL (4.30-6.10); WHITE BLOOD COUNT 10.6 10^3/uL (4.0-10.0)
[2021-04-17 12:03] LABS: ALBUMIN 3.1 GM/DL (3.2-5.2); ALT/SGPT 47 U/L (12-78); BILIRUBIN,TOTAL 0.5 MG/DL (0.2-1.0); BLOOD UREA NITROGEN 17 MG/DL (7-18); CALCIUM LEVEL 8.1 MG/DL (8.5-10.1); CARBON DIOXIDE LEVEL 24 MEQ/L (21-32); CHLORIDE LEVEL 110 MEQ/L (98-107); CK-MB VALUE MASS 1.8 NG/ML (<3.6); CPK CREATINE PHOSPHOKINASE 397 U/L (39-308); CREATININE FOR GFR 0.92 MG/DL (0.70-1.30); GLOMERULAR FILTRATION RATE > 60.0 (>60); GLUCOSE, FASTING 80 MG/DL (70-100); LIPASE 112 U/L (73-393); MB/CK RELATIVE INDEX 0.45 (< OR =4); SODIUM LEVEL 140 MEQ/L (136-145); TOTAL PROTEIN 6.3 GM/DL (6.4-8.2); TROPONIN I < 0.02 NG/ML (< 0.10)
--- OUTSIDE RECORDS SUMMARY | 2021-04-17 12:21 | CCD ---
Author Author [facility] Organization [facility] Address Unknown Phone Unavailable Care Team Providers Care Client Analyst Name Role Phone Maring, Josr PA Unavailable [...] Patrick Unavailable Unavailable Hale, Patrick Unavailable Unavailable LINN, A. HOUSE CARPENTER [place]ANTA Unavailable [phone] LINN, A. HOUSE CARPENTER [place] Unavailable [phone] LINN, A. HOUSE CARPENTER [place] Unavailable [phone] LINN, A. HOUSE CARPENTER [place] Unavailable [phone] LINN, A. HOUSE CARPENTER [place] Unavailable [phone] LINN, A. HOUSE CARPENTER [place] Unavailable [phone] LINN, A. HOUSE CARPENTER [place] Unavailable [phone] LINN, A. HOUSE CARPENTER [place] Unavailable [phone] LINN, A. HOUSE CARPENTER [place] Unavailable [phone] LINN, A. HOUSE CARPENTER [place] Unavailable [phone] LINN, A. HOUSE CARPENTER [place] Unavailable [phone] LINN, A. HOUSE CARPENTER [place] Unavailable [phone] LINN, A. HOUSE CARPENTER [place] Unavailable [phone] Raoul ESTEVES. HOUSE CARPENTER [place] Unavailable [phone] Raoul ESTEVES. HOUSE CARPENTER [place] Unavailable [phone] SHAHIDA, M LIZBETH PA Unavailable Unavailable SHAHIDA, [...] is protected by Article 27-F of the [facility] Public Health law. If you continue you may have access to information: Regarding HIV / AIDS; Provided by facilities licensed or operated by the [facility] Office of Mental Health; or Provided by the [facility] Office for People With Developmental Disabilities. If such information is present, then the following [facility] mandated warning applies: This information has [...] law may result in a fine or fci sentence or both. A general authorization for the release of medical or other information is NOT sufficient authorization for further disc losure. Family History Family Member Name Family Member Gender Family Member Status Date o f Status Description Data Source(s) Unknown Unknown Problem [facility] ([facility]) sister Unknown Male Problem [facility] ([facility]) Encounters Encounter Providers Location Date Indications Data Source(s ) Outpatient Attender: SANTA ESTEVES 04/04 08:22:25 AM EDT - 04/17/2021 08:33:41 AM EDT [facility] ([facility] ) Outpatient Attender: Josr ELLIOTT 02/05/20 02:59:09 PM EDT - 02/04/2021 03:40:06 PM EDT [facility] ([facility] ) Outpatient Attender: Josr ELLIOTT 10/28/19 11:06:45 AM EDT - 10/27/2020 11:36:10 AM EDT [facility] ([facility] ) Outpatient Attender: LIZBETH ELLIOTT Physical Therapy 07/2019 09:15:00 AM EDT [facility] ([facility]) Outpatient Attender: Patrick Hale Physical Therapy 03/08/2020 03:55:0 0 PM EDT [facility] ([facility]) Medications Medication Brand Name Start Date Product [...] 12:00:00 AM EDT ORAL active MED[facility] (No [facility]) Insurance Providers Payer name Policy type / Coverage type Policy ID Covered libertarian ID Covered libertarian's relationship to land Policy Land Plan Information [facility] () Workers Compensation [id number] Self [id number] [facility] () Workers Compensation [id number] 2.16.840.1.402717.3.227.99.991.104730.0 Self [id number] [facility] () Workers Compensation [id number] 2.16.840.1.995739.3.227.99.991.640639.0 Self [id number] [facility] () Workers Compensation [id number] 2.16.840.1.386801.3.227.99.991.909204.0 Self [id number] [facility] () Workers Compensation [id number] 2.16.840.1.827513.3.227.99.991.274320.0 Self [id number] [facility] () Workers Compensation [id number] 2.16.840.1.673727.3.227.99.991.977796.0 Self [id number] [facility] () Workers Compensation [id number] 2.16.840.1.770387.3.227.99.991.647438.0 Self [id number] [facility] () Workers Compensation [id number] 2.16.840.1.644660.3.227.99.991.501745.0 Self [id number] [employer] () Workers Compensation [id number] 2.16840.1.648198.3.227.99.991.904314.0 Self [id number] [facility] () Workers Compensation [id number] 2.16840.1.790032.3.227.99.991.945550.0 Self [id number] [facility] () Workers Compensation [id number] Self [id number] [facility] () Workers Compensation [id number] 2.16840.1.091996.3.227.99.991.544948.0 Self [id number] [facility] () Workers Compensation [id number] Self [id number] [employer] Medigap Part B [id number] 2.840.1.905844.3.227.99.991.362405.0 Self [id number] [employer] Medigap Part B [id number] 2.840.1.605957.3.227.99.991.087873.0 Self [id number] [employer] Medigap Part B [id number] 2.16840.1.244731.3.227.99.991.230555.0 Self [id number] [employer] Medigap Part B [id number] 2.16840.1.419498.3.227.99.991.020324.0 Self [id number] [employer] Medigap Part B [id number] 2.16840.1.849457.3.227.99.991.334797.0 Self [id number] [employer] Medigap Part B [id number] 2.0.1.587669.3.227.99.991.028321.0 Self [id number] [employer] Medigap Part B [id number] 2.0.1.967601.3.227.99.991.482654.0 Self [id number] [employer] Medigap Part B [id number] Self [id number] [employer] Medigap Part B [id number] Self [id number] [employer] Medigap Part B [id number] 2..1.180115.3.227.99.991.535249.0 Self [id number] [employer] Medigap Part B [id number] 2..1.381228.3.227.99.991.723711.0 Self [id number] [employer] Medigap Part B [id number] 2.0.1.463489.3.227.99.991.208620.0 Self [id number] [employer] Option Medigap Part B [id number] Self [id number] Medicaid S [id number] S [id number] [facility] Commercial F [id number] SELF [id number] [employer] [place] P [id number] S [id number] [employer] () Workers Compensation [id number] 2.0.1.394040.3.227.99.991.071568.0 Self [id number] [employer] () Workers Compensation [id number] .1.370951.3.227.99.991.075172.0 Self [id number] [employer]/SRS () Workers Compensation [id number] Self [id number] [employer] () Workers Compensation [id number] .1.293700.3.227.99.991.690927.0 Self [id number] [employer] () Workers Compensation [id number] .1.404531.3.227.99.991.404602.0 Self [id number] Medicaid S [id number] S [id number] [facility] P [id number] S [id number] Medicaid S [id number] S [id number] [facility] P [id number] S [id number] Workers Comp Carrier I WorkComp Health Claim [id number] Emplo bell [id number] WorkComp Carrier [place] WorkComp Health Claim [id number] Employee [id number] [employer] [id number] Self [id number] [place] [employer] Co. 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 PLAN UNAVAILABLE SP UNAVAILABLE CHAO [id number] SP [id number] 600 [id number] [place] CARE [place] O [id number] S [id number] CHAO [id number] SP [id number] [facility] [id number] SP [id number] ONE CALL CARE MANAGEMENT O [id number] S [id number] [facility] [id number] S [id number] ABDEL[place] O [id number] S [id number] [facility] P [id number] S [id number] [facility] [id number] SP [id number] CHAO [id number] SP [id number] SELF PAY ONLY [id number] SP [id number] [facility]) O [id number] S [id number] SELF PAY ONLY [id number] SP [id number] [facility] COMMUNITY PLAN MCDO [id number] SP [id number] [facility] Community Plan Commercial [id number] Self [id number] [facility] [id number] SP [id number] MEDICAID [id number] SP [id number] [facility] CLAIMS [id number] SP [id number] [facility] Community Plan Commercial [id number] Self [id number] [facility] [id number] SP [id number] [facility] Health Maintenance Organization (O) [id number] 2..840.1.683942.3.227.99.1767.60114.0 Self [id number] [employer]NAGEMENT O [id number] S [id number] [employer] MANAGEMENT O [id number] S [id number] ONE [employer]ARE MANAGEMENT O [id number] S [id number] [facility] Commercial F [id number] [id number] [facility] Health Maintenance Organization (O) [id number] 2.840.1.036592.3.227.99.1767.63727.0 Self [id number] [facility] Health Maintenance Organization (O) [id number] 2.840.1.834356.3.227.99.1767.77449.0 Self [id number] [facility] Health Maintenance Organization (O) [id number] 2.840.1.210804.3.227.99.1767.79105.0 Self [id number] [employer] MANAGEMENT O [id number] S [id number] [facility] [place] WC CLAIMS O [id number] S [id number] MEDICAID M [id number] S [id number] [employer] COMMUNITY PLAN MCDHMO [id number] SP [id number] Medicaid S [id number] S [id number] Self Pay P UNAVAILABLE S UNAVAILA BLE [facility] [place] WC CLAIMS [id number] SP [id number] [employer] [id number] SP [id number] HB ESCALONA O [id number] S [id number] OTHER WORKERS COMPENSATI O [id number] O [id number] HB ESCALONA [id number] SP [id number] [facility] P [id number] O [id number] [employer] P [id number] O [id number] BLUE 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 ID Date Data Source [id number] 04/09/2021 12:00:00 AM EDT [facility] Name Value Range Interpretation Code Description Data Day rce(s) Supporting Document(s) SARS-CoV2 Rapid Antigen Negative [facility] This lab was ordered by [facility] and reported by [facility]. ID Date Data Source [id number] 02/04/2021 03:30:00 PM EDT [facility] Name Value Range Interpretation Code Description Data Day rce(s) Supporting Document(s) SARS-CoV-2 RNA Resp Ql JUANA+probe NOT DETECTED [facility] This lab was ordered by MILADY parikh and reported by MILADY Alcocer. Procedure Social History No Information
[2021-04-17] MEDS ORDERED: ISOVUE-370 76% 100ML VIAL As Ordered ONE (13:14)
--- NOTE | 2021-04-17 13:39 | REP ---
INDICATION: shortness of breath COMPARISON: None. TECHNIQUE: Axial contrast enhanced images from the thoracic inlet to the upper abdomen using pulmonary embolus technique with multiplanar re-formations. 75 ml Isovue 370 intravenous contrast material administered without complication. This CT examination was performed using the following dose reduction techniques: Automated exposure control, adjustment of mA and/or kv according to the patient's size, and use of iterative reconstruction technique. FINDINGS: Evaluation is somewhat limited due to respiratory motion artifact. No obvious pulmonary arterial filling defects are identified to suggest pulmonary embolus. Further evaluation of the mediastinum demonstrates normal thoracic aorta, heart and pericardium. The lung adams demonstrate very subtle posterior basilar airspace disease which may represent trace early atelectasis. No adenopathy. Small hiatal hernia at the gastroesophageal junction noted. Musculoskeletal structures are intact. IMPRESSION: No definite evidence for pulmonary embolus. Trace posterior basilar atelectasis cannot be excluded.. <Electronically signed by Eugenio Austin > 04/17/21 [id number]
[2021-04-17] MEDS ORDERED: DOXY-350 PO (14:16)
[2021-04-17 14:46] VITALS: BP 124/77
--- NOTE | 2021-04-18 08:03 | ECGEPIP ---
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
== END 2021-04-17 15:01 | disposition home or self-care (01) ==
LOC: M ED 09:42
DX: J06.9 Acute upper respiratory infection, unspecified (principal); B34.1 Enterovirus infection, unspecified; B34.8 Other viral infections of unspecified site; L03.116 Cellulitis of left lower limb
CPT/HCPCS: 36415; 71045; 71275; 80053; 82550; 82553; 83690; 85025; 85379; 87798; 93005; 93041; 93971; 94760; 99285; Q9967

== ENCOUNTER 2021-11-27 13:09 | Emergency (ER) | payer OTHER ==
[~2021-11-27 13:09] MED LIST changes: +DOXY-350 PO
[2021-11-27 14:35] LABS: MEAN CORPUSCULAR HEMOGLOBIN 28.7 pg (27.0-33.0); MEAN CORPUSCULAR HGB CONC 34.1 g/dl (32.0-36.5); MEAN CORPUSCULAR VOLUME 84.1 fl (80.0-96.0); PLATELET COUNT, AUTOMATED 321 10^3/uL (150-450); RED BLOOD COUNT 5.23 10^6/uL (4.30-6.10); WHITE BLOOD COUNT 8.9 10^3/uL (4.0-10.0)
[2021-11-27 15:12] LABS: ACETAMINOPHEN LEVEL < 2.0 UG/ML (10.0-30.0); ALT/SGPT 99 U/L (12-78); BILIRUBIN,DIRECT 0.2 MG/DL (0.0-0.2); BILIRUBIN,TOTAL 0.6 MG/DL (0.2-1.0); BLOOD UREA NITROGEN 15 MG/DL (7-18); CALCIUM LEVEL 9.5 MG/DL (8.5-10.1); CARBON DIOXIDE LEVEL 25 MEQ/L (21-32); CHLORIDE LEVEL 109 MEQ/L (98-107); CREATININE FOR GFR 1.05 MG/DL (0.70-1.30); ETHYL ALCOHOL (ETHANOL) < 0.003 % (0.000-0.010); GLOMERULAR FILTRATION RATE > 60.0 (>60); GLUCOSE, FASTING 96 MG/DL (70-100); POTASSIUM SERUM 4.2 MEQ/L (3.5-5.1); SALICYLATE LEVEL < 1.7 MG/DL (5.0-30.0); SODIUM LEVEL 143 MEQ/L (136-145); THYROID STIMULATING HORMONE 0.723 uIU/ML (0.358-3.740); TOTAL PROTEIN 7.2 GM/DL (6.4-8.2)
[2021-11-27 16:07] LABS: AMPHETAMINES LEVEL URINE NEGATIVE (NEGATIVE); BARBITURATES URINE NEGATIVE (NEGATIVE); BENZODIAZEPINES URINE NEGATIVE (NEGATIVE); CANNABINOIDS URINE NEGATIVE (NEGATIVE); COCAINE METABOLITE URINE NEGATIVE (NEGATIVE); METHADONE URINE NEGATIVE (NEGATIVE); OPIATES URINE NEGATIVE (NEGATIVE); PHENCYCLIDINE URINE NEGATIVE (NEGATIVE)
[2021-11-27 16:11] LABS: RSV AMPLIFICATION NEGATIVE (NEGATIVE)
[2021-11-27 18:45] VITALS: BP 125/52
== END 2021-11-27 18:49 | disposition home or self-care (01) ==
LOC: M ED 13:09
DX: F43.0 Acute stress reaction (principal); R45.851 Suicidal ideations; F32.A Depression, unspecified; Z63.0 Problems in relationship with spouse or partner; Z79.899 Other long term (current) drug therapy

== ENCOUNTER 2023-02-09 19:18 | Emergency (ER) | payer OTHER ==
[~2023-02-09] VITALS: Ht 177.8 cm; Wt 144.0 kg
[~2023-02-09 19:18] MED LIST changes: -DOXY-350 PO; +DOXY-444 PO
[2023-02-09 19:19] VITALS: BP 164/102; TEMP 98.8; O2SAT 98
== END 2023-02-09 23:06 | disposition left against medical advice (07) ==
LOC: M ED 19:18
DX: Z53.21 Procedure and treatment not carried out due to patient leaving prior to being seen by health care provider (principal)

== ENCOUNTER 2023-06-09 15:05 | Emergency (ER) | payer OTHER ==
[~2023-06-09] VITALS: Ht 177.8 cm; Wt 125.0 kg
[2023-06-09] MEDS ORDERED: IBUPROFEN 800 MG TAB PO ONE (17:50)
[2023-06-09] MEDS ORDERED: ACETAMINOPHEN 500 MG TAB PO ONE (21:45)
[2023-06-09] MEDS ORDERED: IBUP-1022 PO (22:40)
[2023-06-09] MEDS ORDERED: METH-1164 PO (22:40)
[2023-06-09 22:45] VITALS: BP 136/67; TEMP 97.5; O2SAT 97
[2023-06-09] MEDS ORDERED: methocarbamoL 500 MG TAB PO ONE (22:45)
== END 2023-06-09 22:54 | disposition home or self-care (01) ==
LOC: M ED 15:05 → EDBD 15:05 → EDSEX 15:05 → M ED 22:54
DX: R53.1 Weakness (principal); V43.52XA Car driver injured in collision with other type car in traffic accident, initial encounter; Y92.9 Unspecified place or not applicable; Y93.89 Activity, other specified; F17.290 Nicotine dependence, other tobacco product, uncomplicated

== ENCOUNTER → 2023-12-07 | Outpatient (REF) | payer OTHER ==
[~2023-12-07] MED LIST changes: +DOXY-440 PO; -DOXY-444 PO; +IBUP-1022 PO; +LEVA750T7 PO; +METH-1164 PO; +MORP15TASA PO; +OXYC-517 PO
[2023-12-07 21:27] LABS: Trichomonas vaginalis (AMP) NOT DETECTED (NEGATIVE)
[2023-12-07 21:51] LABS: GC DNA AMPLIFICATION NEGATIVE (NEGATIVE)
[2023-12-08 14:22] LABS: HEMOGLOBIN A1c 5.5 % (4.0-6.0)
[2023-12-08 14:26] LABS: ALBUMIN 3.8 G/DL (3.2-5.2); ALKALINE PHOSPHATASE 80 U/L (46-116); ALT/SGPT 111 U/L (7.0-40); AST/SGOT 39 U/L (<34); BILIRUBIN,TOTAL 0.4 MG/DL (0.3-1.2); BLOOD UREA NITROGEN 16 MG/DL (9-23); CARBON DIOXIDE LEVEL 23 MMOL/L (20-31); CHLORIDE LEVEL 106 MMOL/L (98-107); CHOLESTEROL LEVEL 284 MG/DL (<200); CHOLESTEROL RISK RATIO 5.76 (<5); CREATININE FOR GFR 0.96 MG/DL (0.70-1.30); GLOMERULAR FILTRATION RATE > 60.0 (>60); GLUCOSE, FASTING 86 MG/DL (60-100); HDL CHOLESTEROL 49.3 MG/DL (>40); LDL CHOLESTEROL 202.5 MG/DL (<100); NON-HDL-C 234.7 MG/DL; POTASSIUM SERUM 5.4 MMOL/L (3.5-5.1); SODIUM LEVEL 137 MMOL/L (136-145); TOTAL PROTEIN 7.1 G/DL (5.7-8.2); TRIGLYCERIDES LEVEL 161 MG/DL (<150)
[2023-12-08 14:27] LABS: THYROID STIMULATING HORMONE 1.194 uIU/ML (0.55-4.78)
[2023-12-08 14:28] LABS: TOTAL 25(OH) VITAMIN D 18.8 NG/ML (20.0-100.0)
[2023-12-08 14:52] LABS: HIV 1&2 SCREEN NEGATIVE (NEGATIVE)
[2023-12-08 15:00] LABS: HEPATITIS C VIRUS ABY INDEX 0.03 INDEX (<0.8)
== END ==
LOC: M LAB REF 17:05
PROVIDERS: ATTEND Physician Assistant
DX: Z11.9 Encounter for screening for infectious and parasitic diseases, unspecified (principal)

== ENCOUNTER 2023-12-10 22:47 | Emergency (ER) | payer OTHER ==
[~2023-12-10] VITALS: Ht 177.8 cm; Wt 157.0 kg
[2023-12-10 23:26] LABS: BASO % 0.4 % (0.0-1.0); EOS # 0.4 10^3/uL (0.0-0.5); EOS % 4.6 % (0.0-3.0); HEMATOCRIT 45.5 % (42.0-52.0); HEMOGLOBIN 15.9 g/dl (13.5-17.5); LYMPH # 2.4 10^3/uL (1.5-5.0); LYMPH % 26.6 % (24.0-44.0); MEAN CORPUSCULAR HEMOGLOBIN 28.6 pg (27.0-33.0); MEAN CORPUSCULAR HGB CONC 34.9 g/dl (32.0-36.5); MONO # 0.5 10^3/uL (0.0-0.8); MONO % 5.8 % (2.0-8.0); NEUTROPHILS # 5.6 10^3/uL (1.5-8.5); NEUTROPHILS % 62.3 % (36.0-66.0); PLATELET COUNT, AUTOMATED 363 10^3/uL (150-450); RED BLOOD COUNT 5.55 10^6/uL (4.30-6.10); WHITE BLOOD COUNT 9.1 10^3/uL (4.0-10.0)
[2023-12-10 23:49] LABS: CK-MB VALUE MASS < 1.0 NG/ML (<3.6)
[2023-12-10 23:51] LABS: BLOOD UREA NITROGEN 17 MG/DL (9-23); CALCIUM LEVEL 9.8 MG/DL (8.5-10.1); CARBON DIOXIDE LEVEL 25 MMOL/L (20-31); CHLORIDE LEVEL 106 MMOL/L (98-107); CREATININE FOR GFR 0.96 MG/DL (0.70-1.30); GLOMERULAR FILTRATION RATE > 60.0 (>60); GLUCOSE, FASTING 145 MG/DL (60-100); SODIUM LEVEL 139 MMOL/L (136-145)
[2023-12-10 23:56] LABS: CPK CREATINE PHOSPHOKINASE 211 U/L (46-171); MB/CK RELATIVE INDEX 0.47 (< OR =4)
[2023-12-11] MEDS ORDERED: MORPHINE 2 MG/ML 1ML VIAL IV ONE
[2023-12-11] MEDS ORDERED: ONDANSETRON 4MG 2ML VIAL IV ONE
[2023-12-11] MEDS ORDERED: ISOVUE-370 76% 100ML VIAL As Ordered ONE (00:08)
[2023-12-11 00:46] LABS: CK-MB VALUE MASS < 1.0 NG/ML (<3.6)
[2023-12-11 00:47] LABS: CPK CREATINE PHOSPHOKINASE 191 U/L (46-171); MB/CK RELATIVE INDEX 0.52 (< OR =4)
[2023-12-11 01:47] VITALS: BP 127/69; TEMP 97.9
[2023-12-11 02:02] VITALS: O2SAT 97
== END 2023-12-11 02:15 | disposition home or self-care (01) ==
LOC: EDBD 22:47 → M ED 22:47
DX: R06.02 Shortness of breath (principal); E78.5 Hyperlipidemia, unspecified; F17.200 Nicotine dependence, unspecified, uncomplicated; Z79.1 Long term (current) use of non-steroidal anti-inflammatories (NSAID); Z79.2 Long term (current) use of antibiotics; Z79.899 Other long term (current) drug therapy
CPT/HCPCS: 71045; 71275; 80048; 82550; 82553; 83605; 84484; 85025; 87486; 87581; 87633; 87798; 93005; 93041; 94760; 96374; 99285; Q9967

== ENCOUNTER → 2023-12-16 | Outpatient (CLI) | payer OTHER | LOC: M EKG 10:08 | PROVIDERS: ATTEND Physician Assistant | DX: R55 Syncope and collapse (principal) ==

== ENCOUNTER → 2023-12-30 | Outpatient (REF) | payer OTHER ==
[2023-12-30 17:49] LABS: CREATININE, URINE 244.4 MG/DL; MAU/CREAT RATIO 1.6 MCG/MG (0.0-30.0)
== END ==
LOC: M LAB REF 16:39
PROVIDERS: ATTEND Physician Assistant
DX: R03.0 Elevated blood-pressure reading, without diagnosis of hypertension (principal)

== ENCOUNTER → 2024-07-11 | Outpatient (REF) | payer OTHER ==
[~2024-07-11] MED LIST changes: +GABA-1172 PO; -GABA-282 PO; -NEOM1SOL13; +NEOM1SOL21
== END ==
LOC: M LAB REF 17:26
PROVIDERS: ATTEND Physician Assistant Medical
DX: B34.9 Viral infection, unspecified (principal)

== ENCOUNTER → 2025-01-09 | Outpatient (CLI) | payer OTHER ==
[~2025-01-09] MED LIST changes: +CORTOTSO; +MORP-138 PO; -MORP15TASA PO; -NEOM1SOL21
== END ==
LOC: M RAD 07:09
PROVIDERS: ATTEND Physician Assistant
DX: R74.01 Elevation of levels of liver transaminase levels (principal)

== ENCOUNTER → 2025-05-09 | Outpatient (CLI) | payer OTHER ==
[~2025-05-09] MED LIST changes: -IBUP-1022 PO; +IBUP600T42 PO
== END ==
LOC: M RAD 17:10
PROVIDERS: ATTEND Physician Assistant
DX: R05.9 Cough, unspecified (principal)